=== PATIENT | male | born 1990 | race Caucasian/White ===

== ENCOUNTER 2018-02-22 18:18 | Emergency (ER) | payer OTHER ==
[~2018-02-22] VITALS: Ht 188 cm; Wt 82.0 kg
[2018-02-22] MEDS ORDERED: SODIUM CHLORIDE 0.9% 1,000ML IVBOLUS ONE (18:30)
[2018-02-22] MEDS ORDERED: ONDANSETRON 2MG/ML, 2ML IVPush ONE (18:30)
[2018-02-22] MEDS ORDERED: SODIUM CHLORIDE FLUSH 10ML SYR IVF ONE (18:30)
[2018-02-22] MEDS ORDERED: MORPHINE SULFATE 4 MG/ML, 1ML ONE ×3 (18:38→19:20)
[2018-02-22] MEDS ORDERED: ONDANSETRON 2MG/ML, 2ML ONE (18:38)
[2018-02-22] MEDS: MORPHINE SULFATE 4 MG/ML, 1ML IVPush PRN ×2 (18:42→18:58)
[2018-02-22 18:51] LABS: BASOPHILS # (AUTO) 0.13 x10^3/uL (0-0.1); BASOPHILS % (AUTO) 1 % (0-1); EOSINOPHILS # (AUTO) 0.16 x10^3/uL (0-0.4); EOSINOPHILS % (AUTO) 1 % (1-7); LYMPHOCYTES # (AUTO) 3.18 x10^3/uL (1-3.4); LYMPHOCYTES % (AUTO) 21 % (22-44); MD NO; MEAN CORPUSCULAR HEMOGLOBIN 29.4 pg (27.5-34.5); MEAN CORPUSCULAR HGB CONC 34.1 g/dL (33.2-36.2); MEAN CORPUSCULAR VOLUME 86.2 fL (81-97); MEAN PLATELET VOLUME 8.4 fL (7.4-10.4); MONOCYTES # (AUTO) 0.97 x10^3/uL (0.2-0.8); MONOCYTES % (AUTO) 6 % (2-9); NEUTROPHILS % (AUTO) 71 % (42-75); PLATELET COUNT 317 x10^3/uL (130-400); RED CELL DISTRIBUTION WIDTH 13.5 % (9.4-14.8)
[2018-02-22 19:01] LABS: ALANINE AMINOTRANSFERASE 29 U/L (12-78); ALBUMIN 4.6 g/dL (3.4-5.0); ANION GAP 10 mmol/L (5-15); CALCIUM 8.9 mg/dL (8.5-10.1); CHLORIDE 103 mmol/L (98-107); CREATININE 1.34 mg/dL (0.7-1.3)
[2018-02-22 19:04] LABS: ALKALINE PHOSPHATASE 90 U/L (45-117); BILIRUBIN,TOTAL 0.5 mg/dL (0.2-1.0); TOTAL PROTEIN 8.4 g/dL (6.4-8.2)
[2018-02-22] MEDS ORDERED: MORPHINE SULFATE 4 MG/ML, 1ML IVPush ONE (19:30)
[2018-02-22 19:31] LABS: MICROSCOPIC NOT IND
[2018-02-22 19:34] LABS: CULTURE INDICATED? NO
[2018-02-22] MEDS ORDERED: KETOROLAC 30 MG/1 ML ONE (21:44)
[2018-02-22 21:51] VITALS: BP 146/93
[2018-02-22] MEDS ORDERED: TAMSULOSIN 0.4 MG CAP.ER.24H PO ONE (22:00)
[2018-02-22] MEDS ORDERED: PROCHLORPERAZINE 5 MG/ML, 2ML IVPush ONE (22:00)
[2018-02-22] MEDS ORDERED: KETOROLAC 30 MG/1 ML IVPush ONE (22:00)
[2018-02-22] MEDS ORDERED: TAMSULOSIN 0.4 MG CAP.ER.24H ONE (22:02)
[2018-02-22] MEDS ORDERED: ONDANSETRON ODT 4 MG ONE (22:38)
[2018-02-22] MEDS ORDERED: ONDANSETRON ODT 4 MG PO ONE (23:00)
== END 2018-02-22 22:46 | disposition home or self-care (01) ==
LOC: ED 22:17
DX: N13.2 Hydronephrosis with renal and ureteral calculous obstruction (principal)
CPT/HCPCS: 36415; 74176; 80053; 81003; 83690; 85025; 96374; 96375; 99284; J1885; J2405; J7030; Q0162

== ENCOUNTER 2020-07-14 14:32 | Inpatient (IN) | payer BC, OTHER ==
[~2020-07-14] VITALS: Ht 188 cm; Wt 97.0 kg
[2020-07-14] MEDS ORDERED: SODIUM CHLORIDE FLUSH 10ML SYR IVF ONE (15:00)
[2020-07-14 15:07] LABS: BASOPHILS % (AUTO) 1 % (0-1); EOSINOPHILS % (AUTO) 1 % (1-7); LYMPHOCYTES % (AUTO) 17 % (22-44); MEAN CORPUSCULAR HEMOGLOBIN 33.2 pg (27.5-34.5); MEAN CORPUSCULAR HGB CONC 35.1 g/dL (33.2-36.2); MEAN PLATELET VOLUME 7.7 fL (7.4-10.4); MONOCYTES % (AUTO) 5 % (2-9); NEUTROPHILS % (AUTO) 77 % (42-75); PLATELET COUNT 307 x10^3/uL (130-400); RED BLOOD COUNT 4.83 x10^6/uL (4.38-5.82); RED CELL DISTRIBUTION WIDTH 13.9 % (9.4-14.8)
[2020-07-14 15:11] LABS: ALANINE AMINOTRANSFERASE 185 U/L (12-78); ALBUMIN 4.1 g/dL (3.4-5.0); ANION GAP 6 mmol/L (5-15); CALCIUM 9.3 mg/dL (8.5-10.1); CHLORIDE 104 mmol/L (98-107); CREATININE 0.96 mg/dL (0.7-1.3)
[2020-07-14 15:13] LABS: ALKALINE PHOSPHATASE 112 U/L (45-117); TOTAL PROTEIN 8.1 g/dL (6.4-8.2)
[2020-07-14 15:15] LABS: MD NO
[2020-07-14] MEDS ORDERED: MORPHINE SULFATE 4 MG/ML, 1ML ONE (16:51)
[2020-07-14] MEDS ORDERED: ONDANSETRON 2MG/ML, 2ML ONE ×2 (16:51→18:25)
[2020-07-14 17:00] LABS: MICROSCOPIC INDICATED
[2020-07-14] MEDS ORDERED: SODIUM CHLORIDE 0.9% 1,000ML IVBOLUS ONE ×2 (17:00→19:30)
[2020-07-14] MEDS ORDERED: ONDANSETRON 2MG/ML, 2ML IVPush ONE ×2 (17:00→18:30)
[2020-07-14] MEDS ORDERED: MORPHINE SULFATE 4 MG/ML, 1ML IVPush PRN (17:00)
--- NOTE | 2020-07-14 17:28 | NUR ---
PT IN BED WITH NO SIGNS OR SYMPTOMS OF ACUTE DSITRSS NOTED RESPIRATIONS EVEN AND UNLABORED PT REPORTS THAT PAIN UNCHANGED FROM ADMIN OF IV MORPHINE. US ONGOING AT BEDSIDE. PT ON UTILITY MECHANIC.
[2020-07-14] MEDS ORDERED: HYDROmorphone 1 MG/ML, 1ML INJ ONE ×2 (17:37→19:13)
[2020-07-14] MEDS ORDERED: HYDROmorphone 1 MG/ML, 1ML INJ IV ONE ×2 (18:00→19:30)
[2020-07-14] MEDS ORDERED: CEFTRIAXONE 1,000 MG in DEXTROSE 5% 50 ML IVPB ONE (18:30)
[2020-07-14] MEDS ORDERED: METRONIDAZOLE PMX 500MG/100ML 100 ML IV ONE (18:30)
[2020-07-14] MEDS ORDERED: METRONIDAZOLE PMX 500MG/100ML 100 ML ONE (18:32)
[2020-07-14] MEDS ORDERED: HYDROmorphone 1 MG/ML, 1ML INJ IV PRN (20:30)
[2020-07-14] MEDS: morphine SULFATE 10 MG/ML, 1ML IVPush PRN (21:05)
[2020-07-14] MEDS: ONDANSETRON ODT 4 MG PO PRN (21:14)
[2020-07-14] MEDS: FAMOTIDINE 20 MG/2 ML IVPush SCH (21:14)
[2020-07-14] MEDS: LACTATED RINGERS 1,000 ML IV SCH (21:14)
[2020-07-14] MEDS: PROMETHAZINE 25 MG/ML, 1ML IM PRN (21:59)
[2020-07-14] MEDS ORDERED: hydrALAzine 20 MG/ML, 1ML IV PRN (23:30)
[2020-07-14] MEDS: HYDROmorphone 2 MG/ML, 1ML IVPush PRN ×2 (23:33→23:50)
[2020-07-14 23:53] VITALS: BP 194/132
[2020-07-15] VITALS (16 sets, daily range): BP systolic 136–204; BP diastolic 91–134
[2020-07-15] MEDS ORDERED: KETOROLAC 30 MG/1 ML IM PRN (01:00)
[2020-07-15] MEDS ORDERED: hydrALAzine 20 MG/ML, 1ML IV ONE (01:00)
[2020-07-15] MEDS: KETOROLAC 30 MG/1 ML IV PRN ×2 (01:45→08:02)
[2020-07-15] MEDS: LACTATED RINGERS 1,000 ML IV SCH ×3 (02:40→15:26)
[2020-07-15] MEDS ORDERED: hydrALAzine 20 MG/ML, 1ML IV PRN (03:00)
[2020-07-15] MEDS ORDERED: LABETALOL 5MG/ML, 20ML IVPush ONE ×2 (03:30→05:30)
[2020-07-15] MEDS ORDERED: LABETALOL 5MG/ML, 20ML IVPush PRN (04:30)
[2020-07-15] MEDS: HYDROmorphone 1 MG/ML, 1ML INJ IV PRN ×9 (04:35→21:51)
[2020-07-15 06:00] LABS: MEAN CORPUSCULAR HEMOGLOBIN 32.6 pg (27.5-34.5); MEAN CORPUSCULAR HGB CONC 34.4 g/dL (33.2-36.2); MEAN PLATELET VOLUME 8.5 fL (7.4-10.4); PLATELET COUNT 289 x10^3/uL (130-400)
[2020-07-15 06:09] LABS: CHLORIDE 101 mmol/L (98-107)
[2020-07-15 06:27] LABS: ALANINE AMINOTRANSFERASE 148 U/L (12-78); ALBUMIN 4.1 g/dL (3.4-5.0); ALKALINE PHOSPHATASE 101 U/L (45-117); ANION GAP 13 mmol/L (5-15); BILIRUBIN,TOTAL 1.8 mg/dL (0.2-1.0); CALCIUM 9.6 mg/dL (8.5-10.1); TOTAL PROTEIN 8.4 g/dL (6.4-8.2)
[2020-07-15 06:34] LABS: MD YES
[2020-07-15 06:36] LABS: <RBC MORPHOLOGY> NORMAL; BANDS%(MANUAL) 8 % (0-7); LYMPH#(MANUAL) 0.47 x10^3/uL (1-3.4); LYMPHS% (MANUAL) 2 % (22-44); MONOS#(MANUAL) 0.47 x10^3/uL (0.3-2.7); MONOS% (MANUAL) 2 % (2-9); SEG#(MANUAL) 20.86 x10^3/uL (1.8-6.8); SEGS% (MANUAL) 88 % (42-75)
[2020-07-15 06:37] LABS: <PLATELET ESTIMATE> ADEQUATE; <PLT MORPHOLOGY> NORMAL PLT MORPH
[2020-07-15] MEDS: FAMOTIDINE 20 MG/2 ML IVPush SCH ×2 (08:50→19:45)
[2020-07-15 09:23] LABS: AMPHETAMINE SCREEN, URINE Negative (Negative); BARBITURATE SCREEN, URINE Negative (Negative); BENZODIAZEPINE SCREEN, URINE Negative (Negative); CANNABINOID SCREEN, URINE Positive (Negative); COCAINE SCREEN, URINE Negative (Negative); METHADONE SCREEN, URINE Negative (Negative); OPIATE SCREEN, URINE Positive (Negative)
[2020-07-15] MEDS: ONDANSETRON ODT 4 MG PO PRN ×4 (09:52→21:51)
[2020-07-15] MEDS: PROMETHAZINE 25 MG/ML, 1ML IM PRN ×2 (15:24→19:46)
[2020-07-15] MEDS: ZOLPIDEM 5MG TABLET PO SCH (21:51)
[2020-07-16] MEDS: LACTATED RINGERS 1,000 ML IV SCH ×4 (00:03→20:36)
[2020-07-16] MEDS: HYDROmorphone 1 MG/ML, 1ML INJ IV PRN ×4 (00:04→06:56)
[2020-07-16] MEDS: PROMETHAZINE 25 MG/ML, 1ML IM PRN ×5 (00:04→20:35)
[2020-07-16 00:52] VITALS: BP 132/87
[2020-07-16] MEDS ORDERED: METOPROLOL 1 MG/ML, 5ML IVPush ONE ×2 (01:30→03:30)
[2020-07-16 02:08] VITALS: BP 138/82
[2020-07-16] MEDS: ONDANSETRON ODT 4 MG PO PRN ×2 (02:21→05:59)
[2020-07-16 06:33] LABS: MEAN CORPUSCULAR HEMOGLOBIN 32.9 pg (27.5-34.5); MEAN CORPUSCULAR HGB CONC 33.8 g/dL (33.2-36.2); MEAN PLATELET VOLUME 9.2 fL (7.4-10.4); PLATELET COUNT 235 x10^3/uL (130-400); RED BLOOD COUNT 5.09 x10^6/uL (4.38-5.82); RED CELL DISTRIBUTION WIDTH 14.2 % (9.4-14.8)
[2020-07-16 06:39] LABS: ALANINE AMINOTRANSFERASE 95 U/L (12-78); ALBUMIN 3.1 g/dL (3.4-5.0); ANION GAP 13 mmol/L (5-15); CALCIUM 8.8 mg/dL (8.5-10.1); CHLORIDE 98 mmol/L (98-107); CREATININE 1.73 mg/dL (0.7-1.3)
[2020-07-16 06:41] LABS: ALKALINE PHOSPHATASE 77 U/L (45-117); BILIRUBIN,TOTAL 4.2 mg/dL (0.2-1.0); TOTAL PROTEIN 7.4 g/dL (6.4-8.2)
[2020-07-16 07:13] VITALS: BP 143/83
[2020-07-16 07:35] LABS: MD YES
[2020-07-16 07:37] LABS: <PLATELET ESTIMATE> ADEQUATE; <PLT MORPHOLOGY> NORMAL PLT MORPH; <RBC MORPHOLOGY> NORMAL; BAND#(MANUAL) 2.84 x10^3/uL; BANDS%(MANUAL) 12 % (0-7); LYMPH#(MANUAL) 0.47 x10^3/uL (1-3.4); LYMPHS% (MANUAL) 2 % (22-44); MONOS#(MANUAL) 0.24 x10^3/uL (0.3-2.7); MONOS% (MANUAL) 1 % (2-9); SEG#(MANUAL) 20.15 x10^3/uL (1.8-6.8); SEGS% (MANUAL) 85 % (42-75)
[2020-07-16 07:38] LABS: PMNS WITH VACUOLES 1+
[2020-07-16 07:45] LABS: TROPONIN I < 0.015 ng/mL (0.000-0.045)
[2020-07-16] MEDS ORDERED: HYDROmorphone 2 MG/ML, 1ML ONE (09:48)
[2020-07-16] MEDS: FAMOTIDINE 20 MG/2 ML IVPush SCH ×2 (09:52→20:35)
[2020-07-16] MEDS: HYDROmorphone 2 MG/ML, 1ML IVPush PRN ×4 (09:55→22:57)
[2020-07-16] MEDS: PIPERACILLIN/TAZO/PMX 3.375GM 50 ML IV SCH ×2 (10:55→18:22)
[2020-07-16 13:44] VITALS: BP 162/106
[2020-07-16 19:06] VITALS: BP 153/86
[2020-07-16] MEDS: ZOLPIDEM 5MG TABLET PO SCH (20:35)
[2020-07-17] MEDS: PIPERACILLIN/TAZO/PMX 3.375GM 50 ML IV SCH ×4 (00:17→17:26)
[2020-07-17] MEDS ORDERED: METOPROLOL TARTRATE 25 MG TAB PO ONE (00:30)
[2020-07-17] MEDS ORDERED: METOPROLOL 1 MG/ML, 5ML IVPush ONE (00:30)
[2020-07-17 00:56] VITALS: BP 150/82
[2020-07-17] MEDS: HYDROmorphone 2 MG/ML, 1ML IVPush PRN ×5 (03:31→21:13)
[2020-07-17] MEDS: PROMETHAZINE 25 MG/ML, 1ML IM PRN ×3 (03:45→17:26)
[2020-07-17] MEDS: LACTATED RINGERS 1,000 ML IV SCH ×2 (03:45→20:09)
[2020-07-17 04:59] LABS: MEAN CORPUSCULAR HGB CONC 34.1 g/dL (33.2-36.2); MEAN PLATELET VOLUME 8.7 fL (7.4-10.4); PLATELET COUNT 181 x10^3/uL (130-400); RED BLOOD COUNT 4.33 x10^6/uL (4.38-5.82); RED CELL DISTRIBUTION WIDTH 14.4 % (9.4-14.8)
[2020-07-17 05:12] LABS: ALBUMIN 2.4 g/dL (3.4-5.0); ANION GAP 12 mmol/L (5-15); CALCIUM 8.3 mg/dL (8.5-10.1); CHLORIDE 97 mmol/L (98-107)
[2020-07-17 05:15] LABS: ALANINE AMINOTRANSFERASE 84 U/L (12-78); ALKALINE PHOSPHATASE 65 U/L (45-117); BILIRUBIN,TOTAL 6.2 mg/dL (0.2-1.0); CREATININE 1.22 mg/dL (0.7-1.3); TOTAL PROTEIN 6.5 g/dL (6.4-8.2)
[2020-07-17 05:20] LABS: MEAN CORPUSCULAR HEMOGLOBIN 33.1 pg (27.5-34.5)
[2020-07-17 05:46] LABS: MD YES
[2020-07-17 05:47] LABS: <PLATELET ESTIMATE> ADEQUATE; <RBC MORPHOLOGY> NORMAL; BAND#(MANUAL) 1.14 x10^3/uL; BANDS%(MANUAL) 8 % (0-7); EOS#(MANUAL) 0.14 x10^3/uL (0.0-0.4); EOS% (MANUAL) 1 % (1-7); LYMPH#(MANUAL) 0.85 x10^3/uL (1-3.4); LYMPHS% (MANUAL) 6 % (22-44); PMNS WITH VACUOLES 1+; SEG#(MANUAL) 12.07 x10^3/uL (1.8-6.8); SEGS% (MANUAL) 85 % (42-75)
[2020-07-17 05:48] LABS: <PLT MORPHOLOGY> NORMAL PLT MORPH
[2020-07-17 06:41] VITALS: BP 140/83
[2020-07-17] MEDS: FAMOTIDINE 20 MG/2 ML IVPush SCH ×2 (07:46→21:16)
[2020-07-17] MEDS: INSULIN LISPRO 100 UNITS/ML, PEN SQ-INSULIN SCH ×4 (09:30→21:17)
[2020-07-17] MEDS ORDERED: PROCHLORPERAZINE 5 MG/ML, 2ML IVPush PRN (10:30)
[2020-07-17 14:49] VITALS: BP 150/90
[2020-07-17 20:31] VITALS: BP 154/88
[2020-07-17] MEDS: ZOLPIDEM 5MG TABLET PO SCH (21:16)
[2020-07-18] MEDS: PIPERACILLIN/TAZO/PMX 3.375GM 50 ML IV SCH ×4 (00:01→21:31)
[2020-07-18 00:07] VITALS: BP 141/93
[2020-07-18] MEDS: HYDROmorphone 2 MG/ML, 1ML IVPush PRN ×6 (00:52→21:31)
[2020-07-18] MEDS: LACTATED RINGERS 1,000 ML IV SCH ×2 (05:18→09:00)
[2020-07-18 05:45] LABS: BASOPHILS % (AUTO) 0 % (0-1); EOSINOPHILS % (AUTO) 1 % (1-7); LYMPHOCYTES % (AUTO) 15 % (22-44); MEAN CORPUSCULAR HEMOGLOBIN 33.7 pg (27.5-34.5); MEAN CORPUSCULAR HGB CONC 34.7 g/dL (33.2-36.2); MEAN PLATELET VOLUME 9.1 fL (7.4-10.4); MONOCYTES % (AUTO) 7 % (2-9); NEUTROPHILS % (AUTO) 77 % (42-75); PLATELET COUNT 170 x10^3/uL (130-400); RED BLOOD COUNT 3.88 x10^6/uL (4.38-5.82); RED CELL DISTRIBUTION WIDTH 14.4 % (9.4-14.8)
[2020-07-18 05:55] LABS: ALBUMIN 2.2 g/dL (3.4-5.0); ANION GAP 14 mmol/L (5-15); CALCIUM 8.2 mg/dL (8.5-10.1); CHLORIDE 94 mmol/L (98-107)
[2020-07-18 06:01] LABS: ALANINE AMINOTRANSFERASE 88 U/L (12-78); ALKALINE PHOSPHATASE 64 U/L (45-117); BILIRUBIN,TOTAL 6.6 mg/dL (0.2-1.0); CREATININE 0.95 mg/dL (0.7-1.3); TOTAL PROTEIN 6.4 g/dL (6.4-8.2)
[2020-07-18] MEDS: PROMETHAZINE 25 MG/ML, 1ML IM PRN ×3 (06:09→22:18)
[2020-07-18 06:25] LABS: MD SCAN
[2020-07-18 07:22] VITALS: BP 144/92
[2020-07-18] MEDS: FAMOTIDINE 20 MG/2 ML IVPush SCH ×2 (09:19→20:09)
[2020-07-18] MEDS: INSULIN LISPRO 100 UNITS/ML, PEN SQ-INSULIN SCH ×4 (09:19→22:17)
[2020-07-18] MEDS ORDERED: MIDAZOLAM 1 MG/ML, 2ML ONE (11:16)
[2020-07-18] MEDS ORDERED: FENTANYL PF 100 MCG/2ML ONE (11:16)
[2020-07-18] MEDS ORDERED: CHLORHEXIDINE 15 ML UDC ONE (11:24)
[2020-07-18] MEDS ORDERED: MEPERIDINE/PF 25MG/0.5ML IVPush PRN (11:30)
[2020-07-18] MEDS ORDERED: PROMETHAZINE 25 MG/ML, 1ML IVPush PRN (11:30)
[2020-07-18] MEDS ORDERED: FENTANYL PF 100 MCG/2ML IV PRN (11:30)
[2020-07-18] MEDS ORDERED: ONDANSETRON 2MG/ML, 2ML IVPush PRN (11:30)
[2020-07-18] MEDS ORDERED: HYDROcodone/APAP 7.5-325MG/15ML UDC PO PRN (11:30)
[2020-07-18] MEDS ORDERED: HYDROmorphone 1 MG/ML, 1ML INJ IVPush PRN (11:30)
[2020-07-18] MEDS ORDERED: OXYcodone 5 MG/5 ML ORAL.SOL UDC PO PRN (11:30)
[2020-07-18] MEDS ORDERED: OMNIPAQUE 350 MG/ML, 50 ML BOTTLE ONE (11:48)
[2020-07-18] MEDS ORDERED: GLYCOPYRROLATE 0.2MG/1ML, 5ML ONE (12:26)
[2020-07-18] MEDS ORDERED: CEFAZOLIN 1,000 MG ONE (12:26)
[2020-07-18] MEDS ORDERED: ONDANSETRON 2MG/ML, 2ML ONE (12:26)
[2020-07-18] MEDS ORDERED: SUCCINYLCHOLINE 20 MG/ML, 10ML ONE (12:26)
[2020-07-18] MEDS ORDERED: ROCURONIUM 10MG/ML,5ML ONE (12:26)
[2020-07-18] MEDS ORDERED: NEOSTIGMINE 1 MG/ML, 10ML ONE (12:26)
[2020-07-18] MEDS ORDERED: PROPOFOL 10 MG/ML, 20ML ONE (12:26)
[2020-07-18] MEDS ORDERED: ALBUTEROL HFA 90 MCG/SPRAY ONE (12:47)
[2020-07-18] MEDS ORDERED: ALBUTEROL SULFATE 2.5 MG/3 ML NPPB PRN (13:00)
[2020-07-18 13:30] VITALS: BP 130/82
[2020-07-18] MEDS ORDERED: ALBUTEROL HFA 90 MCG/SPRAY INH ONE (13:30)
[2020-07-18 19:06] VITALS: BP 148/78
[2020-07-18] MEDS: ZOLPIDEM 5MG TABLET PO SCH (21:30)
[2020-07-18] MEDS: INSULIN GLARGINE 100 UNITS/ML, PEN SQ-INSULIN SCH (22:17)
[2020-07-19] MEDS: ONDANSETRON ODT 4 MG PO PRN (00:58)
[2020-07-19] MEDS: HYDROmorphone 2 MG/ML, 1ML IVPush PRN ×3 (00:59→06:30)
[2020-07-19 02:01] VITALS: BP 146/81
[2020-07-19] MEDS: PIPERACILLIN/TAZO/PMX 3.375GM 50 ML IV SCH ×4 (02:52→21:27)
[2020-07-19 04:59] LABS: ALBUMIN 2.1 g/dL (3.4-5.0); ANION GAP 9 mmol/L (5-15); CALCIUM 7.9 mg/dL (8.5-10.1); CHLORIDE 95 mmol/L (98-107); MEAN CORPUSCULAR HEMOGLOBIN 33.6 pg (27.5-34.5); MEAN CORPUSCULAR HGB CONC 34.4 g/dL (33.2-36.2); MEAN PLATELET VOLUME 9.2 fL (7.4-10.4); PLATELET COUNT 183 x10^3/uL (130-400); RED BLOOD COUNT 3.65 x10^6/uL (4.38-5.82); RED CELL DISTRIBUTION WIDTH 14.4 % (9.4-14.8)
[2020-07-19 05:03] LABS: ALANINE AMINOTRANSFERASE 85 U/L (12-78); ALKALINE PHOSPHATASE 70 U/L (45-117); BILIRUBIN,TOTAL 6.5 mg/dL (0.2-1.0); CREATININE 0.83 mg/dL (0.7-1.3); TOTAL PROTEIN 6.5 g/dL (6.4-8.2)
[2020-07-19 05:51] LABS: MD YES
[2020-07-19 05:52] LABS: BAND#(MANUAL) 2.16 x10^3/uL; BANDS%(MANUAL) 22 % (0-7); EOS% (MANUAL) 2 % (1-7); LYMPH#(MANUAL) 1.27 x10^3/uL (1-3.4); LYMPHS% (MANUAL) 13 % (22-44); METAMYELOCYTES# (MANUAL) 0.69 x10^3/uL (0-0); METAMYELOCYTES% (MANUAL) 7 % (0-1); MONOS#(MANUAL) 0.78 x10^3/uL (0.3-2.7); MONOS% (MANUAL) 8 % (2-9); MYELOCYTES# (MANUAL) 0.39 x10^3/uL (0-0); MYELOCYTES% (MANUAL) 4 % (0-0); SEG#(MANUAL) 4.31 x10^3/uL (1.8-6.8); SEGS% (MANUAL) 44 % (42-75)
[2020-07-19 05:55] LABS: <PLATELET ESTIMATE> ADEQUATE; <PLT MORPHOLOGY> NORMAL PLT MORPH; POLYCHROMASIA 1+
[2020-07-19 05:56] LABS: TOXIC GRAN 1+
[2020-07-19 06:59] VITALS: BP 147/86
[2020-07-19] MEDS: FAMOTIDINE 20 MG/2 ML IVPush SCH ×3 (08:47→22:19)
[2020-07-19] MEDS: INSULIN LISPRO 100 UNITS/ML, PEN SQ-INSULIN SCH ×4 (08:47→21:28)
[2020-07-19] MEDS: LACTATED RINGERS 1,000 ML IV SCH ×2 (08:48→22:20)
[2020-07-19] MEDS: HYDROmorphone 1 MG/ML, 1ML INJ IV PRN ×5 (10:18→21:30)
[2020-07-19 13:40] LABS: ANA SCREEN NEGATIVE (Negative)
[2020-07-19 13:49] VITALS: BP 154/97
[2020-07-19] MEDS: PROMETHAZINE 25 MG/ML, 1ML IM PRN ×2 (16:25→20:15)
[2020-07-19 20:00] VITALS: BP 135/87
[2020-07-19] MEDS: ZOLPIDEM 5MG TABLET PO SCH (20:15)
[2020-07-19] MEDS: INSULIN GLARGINE 100 UNITS/ML, PEN SQ-INSULIN SCH (21:28)
[2020-07-20] MEDS: HYDROmorphone 1 MG/ML, 1ML INJ IV PRN ×2 (00:49→09:15)
[2020-07-20] MEDS: PROMETHAZINE 25 MG/ML, 1ML IM PRN ×3 (01:01→19:57)
[2020-07-20 01:17] VITALS: BP 154/83
[2020-07-20] MEDS: PIPERACILLIN/TAZO/PMX 3.375GM 50 ML IV SCH ×4 (03:01→21:05)
[2020-07-20] MEDS ORDERED: HYDROmorphone 2 MG/ML, 1ML ONE ×2 (03:37→06:18)
[2020-07-20] MEDS: HYDROmorphone 2 MG/ML, 1ML IVPush PRN ×5 (03:41→19:57)
[2020-07-20 05:24] LABS: MEAN CORPUSCULAR HEMOGLOBIN 33.3 pg (27.5-34.5); MEAN CORPUSCULAR HGB CONC 34.6 g/dL (33.2-36.2); MEAN PLATELET VOLUME 9.8 fL (7.4-10.4); PLATELET COUNT 188 x10^3/uL (130-400); RED BLOOD COUNT 3.58 x10^6/uL (4.38-5.82); RED CELL DISTRIBUTION WIDTH 14.7 % (9.4-14.8)
[2020-07-20 05:29] LABS: ALBUMIN 1.9 g/dL (3.4-5.0); ANION GAP 8 mmol/L (5-15); CALCIUM 8.2 mg/dL (8.5-10.1); CHLORIDE 99 mmol/L (98-107)
[2020-07-20 05:31] LABS: CREATININE 0.69 mg/dL (0.7-1.3)
[2020-07-20 06:14] LABS: MD YES
[2020-07-20 06:17] LABS: BAND#(MANUAL) 2.18 x10^3/uL; BANDS%(MANUAL) 17 % (0-7); EOS#(MANUAL) 0.38 x10^3/uL (0.0-0.4); EOS% (MANUAL) 3 % (1-7); LYMPH#(MANUAL) 1.92 x10^3/uL (1-3.4); LYMPHS% (MANUAL) 15 % (22-44); METAMYELOCYTES# (MANUAL) 0.51 x10^3/uL (0-0); METAMYELOCYTES% (MANUAL) 4 % (0-1); MONOS#(MANUAL) 0.77 x10^3/uL (0.3-2.7); MONOS% (MANUAL) 6 % (2-9); MYELOCYTES# (MANUAL) 0.38 x10^3/uL (0-0); MYELOCYTES% (MANUAL) 3 % (0-0); SEG#(MANUAL) 6.66 x10^3/uL (1.8-6.8); SEGS% (MANUAL) 52 % (42-75)
[2020-07-20 06:24] LABS: <PLATELET ESTIMATE> ADEQUATE; <PLT MORPHOLOGY> NORMAL PLT MORPH; <RBC MORPHOLOGY> NORMAL; TOXIC GRAN 1+
[2020-07-20 06:57] VITALS: BP 148/91
[2020-07-20] MEDS: INSULIN LISPRO 100 UNITS/ML, PEN SQ-INSULIN SCH ×4 (07:00→21:27)
[2020-07-20] MEDS ORDERED: POTASSIUM CHLORIDE 40 MEQ in SODIUM CHLORIDE 0.9% 500 ML IV ONE (08:00)
[2020-07-20] MEDS: LACTATED RINGERS 1,000 ML IV SCH ×2 (08:00→17:22)
[2020-07-20] MEDS: FAMOTIDINE 20 MG/2 ML IVPush SCH ×2 (09:15→21:06)
[2020-07-20] MEDS ORDERED: POTASSIUM PHOSPHATE 44 MEQ in SODIUM CHLORIDE 0.9% 500 ML IV ONE (09:30)
[2020-07-20 13:06] VITALS: BP 167/99
[2020-07-20] MEDS: ONDANSETRON ODT 4 MG PO PRN (15:14)
[2020-07-20] MEDS: SIMETHICONE 80 MG CHEW TAB PO PRN (18:05)
[2020-07-20 20:00] VITALS: BP 149/94
[2020-07-20] MEDS: ZOLPIDEM 5MG TABLET PO SCH (21:06)
[2020-07-20] MEDS: INSULIN GLARGINE 100 UNITS/ML, PEN SQ-INSULIN SCH (21:28)
[2020-07-21] MEDS: ONDANSETRON ODT 4 MG PO PRN ×2 (00:10→20:22)
[2020-07-21] MEDS: morphine SULFATE 10 MG/ML, 1ML IVPush PRN (00:10)
[2020-07-21] MEDS: PROMETHAZINE 25 MG/ML, 1ML IM PRN ×4 (00:49→13:21)
[2020-07-21 04:10] VITALS: BP 160/99
[2020-07-21] MEDS: PIPERACILLIN/TAZO/PMX 3.375GM 50 ML IV SCH ×4 (04:14→21:37)
[2020-07-21] MEDS: HYDROmorphone 2 MG/ML, 1ML IVPush PRN ×6 (04:15→23:46)
[2020-07-21 05:43] LABS: MEAN CORPUSCULAR HEMOGLOBIN 32.5 pg (27.5-34.5); MEAN CORPUSCULAR HGB CONC 33.5 g/dL (33.2-36.2); MEAN PLATELET VOLUME 9.7 fL (7.4-10.4); PLATELET COUNT 226 x10^3/uL (130-400); RED BLOOD COUNT 3.55 x10^6/uL (4.38-5.82); RED CELL DISTRIBUTION WIDTH 14.7 % (9.4-14.8)
[2020-07-21 05:53] LABS: ALBUMIN 1.9 g/dL (3.4-5.0); ANION GAP 9 mmol/L (5-15); CALCIUM 8.1 mg/dL (8.5-10.1); CHLORIDE 101 mmol/L (98-107)
[2020-07-21 05:58] LABS: ALANINE AMINOTRANSFERASE 76 U/L (12-78); ALKALINE PHOSPHATASE 96 U/L (45-117); BILIRUBIN,TOTAL 3.8 mg/dL (0.2-1.0); CREATININE 0.69 mg/dL (0.7-1.3); TOTAL PROTEIN 6.2 g/dL (6.4-8.2)
[2020-07-21] MEDS: LACTATED RINGERS 1,000 ML IV SCH ×3 (06:31→23:45)
[2020-07-21 06:52] LABS: MD YES
[2020-07-21 06:54] LABS: <RBC MORPHOLOGY> NORMAL; BAND#(MANUAL) 3.21 x10^3/uL; BANDS%(MANUAL) 17 % (0-7); EOS#(MANUAL) 0.38 x10^3/uL (0.0-0.4); EOS% (MANUAL) 2 % (1-7); LYMPHS% (MANUAL) 9 % (22-44); METAMYELOCYTES# (MANUAL) 0.38 x10^3/uL (0-0); METAMYELOCYTES% (MANUAL) 2 % (0-1); MONOS% (MANUAL) 9 % (2-9); MYELOCYTES# (MANUAL) 0.38 x10^3/uL (0-0); MYELOCYTES% (MANUAL) 2 % (0-0); SEG#(MANUAL) 11.15 x10^3/uL (1.8-6.8); SEGS% (MANUAL) 59 % (42-75); TOXIC GRAN 1+
[2020-07-21 06:55] LABS: <PLATELET ESTIMATE> ADEQUATE; <PLT MORPHOLOGY> NORMAL PLT MORPH
[2020-07-21] MEDS: INSULIN LISPRO 100 UNITS/ML, PEN SQ-INSULIN SCH ×4 (08:04→21:38)
[2020-07-21] MEDS ORDERED: OMNIPAQUE 350 MG/ML, 100ML BOTTLE ONE (08:20)
[2020-07-21 09:05] VITALS: BP 160/103
[2020-07-21] MEDS: FAMOTIDINE 20 MG/2 ML IVPush SCH (09:37)
[2020-07-21 12:48] LABS: MICROSCOPIC INDICATED
[2020-07-21 13:52] VITALS: BP 174/78
[2020-07-21] MEDS: ACETAMINOPHEN 325 MG TABLET PO PRN ×2 (15:36→22:04)
[2020-07-21 19:09] VITALS: BP 168/94
[2020-07-21] MEDS: FAMOTIDINE 20 MG TABLET PO SCH (21:37)
[2020-07-21] MEDS: ZOLPIDEM 5MG TABLET PO SCH (21:37)
[2020-07-21] MEDS: INSULIN GLARGINE 100 UNITS/ML, PEN SQ-INSULIN SCH (21:40)
[2020-07-22 00:04] VITALS: BP 170/97
[2020-07-22 01:47] VITALS: BP 142/90
[2020-07-22] MEDS: ONDANSETRON ODT 4 MG PO PRN ×4 (01:54→18:06)
[2020-07-22] MEDS: HYDROmorphone 2 MG/ML, 1ML IVPush PRN ×7 (01:55→21:31)
[2020-07-22] MEDS: PIPERACILLIN/TAZO/PMX 3.375GM 50 ML IV SCH ×4 (03:27→21:01)
[2020-07-22 05:29] LABS: MEAN CORPUSCULAR HEMOGLOBIN 32.4 pg (27.5-34.5); MEAN CORPUSCULAR HGB CONC 33.9 g/dL (33.2-36.2); MEAN PLATELET VOLUME 9.8 fL (7.4-10.4); PLATELET COUNT 273 x10^3/uL (130-400); RED BLOOD COUNT 3.55 x10^6/uL (4.38-5.82); RED CELL DISTRIBUTION WIDTH 14.7 % (9.4-14.8)
[2020-07-22 05:35] LABS: ALANINE AMINOTRANSFERASE 59 U/L (12-78); ALBUMIN 1.9 g/dL (3.4-5.0); ANION GAP 11 mmol/L (5-15); CALCIUM 8.3 mg/dL (8.5-10.1); CHLORIDE 99 mmol/L (98-107); CREATININE 0.61 mg/dL (0.7-1.3)
[2020-07-22 05:37] LABS: ALKALINE PHOSPHATASE 108 U/L (45-117); BILIRUBIN,TOTAL 2.5 mg/dL (0.2-1.0); TOTAL PROTEIN 6.6 g/dL (6.4-8.2)
[2020-07-22 06:05] LABS: MD YES
[2020-07-22 06:10] LABS: BAND#(MANUAL) 2.62 x10^3/uL; BANDS%(MANUAL) 10 % (0-7); EOS#(MANUAL) 0.26 x10^3/uL (0.0-0.4); EOS% (MANUAL) 1 % (1-7); LYMPHS% (MANUAL) 8 % (22-44); METAMYELOCYTES# (MANUAL) 0.26 x10^3/uL (0-0); METAMYELOCYTES% (MANUAL) 1 % (0-1); MONOS#(MANUAL) 1.05 x10^3/uL (0.3-2.7); MONOS% (MANUAL) 4 % (2-9); MYELOCYTES# (MANUAL) 0.52 x10^3/uL (0-0); MYELOCYTES% (MANUAL) 2 % (0-0); SEG#(MANUAL) 19.39 x10^3/uL (1.8-6.8); SEGS% (MANUAL) 74 % (42-75)
[2020-07-22 06:12] LABS: <PLATELET ESTIMATE> ADEQUATE; <PLT MORPHOLOGY> NORMAL PLT MORPH; <RBC MORPHOLOGY> NORMAL; TOXIC GRAN 1+
[2020-07-22 07:20] VITALS: BP 162/89
[2020-07-22] MEDS: FAMOTIDINE 20 MG TABLET PO SCH ×2 (08:09→21:02)
[2020-07-22] MEDS: INSULIN LISPRO 100 UNITS/ML, PEN SQ-INSULIN SCH ×5 (10:15→21:33)
[2020-07-22 12:13] VITALS: BP 147/95
[2020-07-22] MEDS: CHOLECALCIFEROL 5,000u TAB PO SCH ×2 (12:26→13:35)
[2020-07-22] MEDS: MULTIVITS,STRESS FORMULA 1 TABLET PO SCH ×2 (12:26→13:35)
[2020-07-22] MEDS: POTASSIUM CHLORIDE 20 MEQ in SODIUM CHLORIDE 0.9% 250 ML IV SCH ×2 (12:26→22:00)
[2020-07-22] MEDS: ZINC SULFATE 220 MG CAPSULE PO SCH ×2 (12:26→13:36)
[2020-07-22] MEDS: CYCLOBENZAPRINE 10 MG TABLET PO PRN ×2 (13:36→21:30)
[2020-07-22] MEDS: LACTATED RINGERS 1,000 ML IV SCH (19:51)
[2020-07-22] MEDS: ASCORBIC ACID 500 MG TABLET PO SCH (21:01)
[2020-07-22] MEDS: ZOLPIDEM 5MG TABLET PO SCH (21:01)
[2020-07-22] MEDS: INSULIN GLARGINE 100 UNITS/ML, PEN SQ-INSULIN SCH (21:32)
[2020-07-23] MEDS: HYDROmorphone 2 MG/ML, 1ML IVPush PRN ×8 (00:58→22:56)
[2020-07-23 01:07] VITALS: BP 154/90
[2020-07-23] MEDS: PIPERACILLIN/TAZO/PMX 3.375GM 50 ML IV SCH ×2 (03:13→09:34)
[2020-07-23 06:47] VITALS: BP 155/96
[2020-07-23 07:27] LABS: MEAN CORPUSCULAR HEMOGLOBIN 32.4 pg (27.5-34.5); MEAN CORPUSCULAR HGB CONC 33.6 g/dL (33.2-36.2); MEAN PLATELET VOLUME 9.4 fL (7.4-10.4); PLATELET COUNT 404 x10^3/uL (130-400); RED CELL DISTRIBUTION WIDTH 14.7 % (9.4-14.8)
[2020-07-23 07:34] LABS: ALBUMIN 1.8 g/dL (3.4-5.0); ANION GAP 11 mmol/L (5-15); CALCIUM 8.2 mg/dL (8.5-10.1); CHLORIDE 99 mmol/L (98-107); CREATININE 0.65 mg/dL (0.7-1.3)
[2020-07-23 08:00] LABS: MD YES
[2020-07-23 08:03] LABS: BAND#(MANUAL) 2.39 x10^3/uL; BANDS%(MANUAL) 8 % (0-7); EOS% (MANUAL) 1 % (1-7); LYMPH#(MANUAL) 2.09 x10^3/uL (1-3.4); LYMPHS% (MANUAL) 7 % (22-44); METAMYELOCYTES% (MANUAL) 1 % (0-1); MONOS% (MANUAL) 2 % (2-9); MYELOCYTES% (MANUAL) 1 % (0-0); SEGS% (MANUAL) 80 % (42-75)
[2020-07-23 08:05] LABS: <PLATELET ESTIMATE> ADEQUATE; <RBC MORPHOLOGY> NORMAL; TOXIC GRAN 2+
[2020-07-23 08:06] LABS: LARGE PLATELETS 1+
[2020-07-23 08:39] LABS: CLOSTRIDIUM DIFFICILE ANTIGEN POSITIVE; CLOSTRIDIUM DIFFICILE TOXIN NEGATIVE (Negative)
[2020-07-23] MEDS: INSULIN LISPRO 100 UNITS/ML, PEN SQ-INSULIN SCH ×4 (09:35→20:41)
[2020-07-23] MEDS: MULTIVITS,STRESS FORMULA 1 TABLET PO SCH (09:36)
[2020-07-23] MEDS: FAMOTIDINE 20 MG TABLET PO SCH ×2 (09:36→20:39)
[2020-07-23] MEDS: CHOLECALCIFEROL 5,000u TAB PO SCH (09:36)
[2020-07-23] MEDS: ZINC SULFATE 220 MG CAPSULE PO SCH (09:36)
[2020-07-23] MEDS: ASCORBIC ACID 500 MG TABLET PO SCH ×2 (09:36→15:26)
[2020-07-23] MEDS: HYDROmorphone 1 MG/ML, 1ML INJ IV PRN (09:54)
[2020-07-23] MEDS: ONDANSETRON ODT 4 MG PO PRN ×2 (09:54→15:26)
[2020-07-23] MEDS: LACTATED RINGERS 1,000 ML IV SCH ×2 (10:00→22:49)
[2020-07-23] MEDS: CYCLOBENZAPRINE 10 MG TABLET PO PRN ×2 (11:53→20:39)
[2020-07-23 12:02] VITALS: BP 139/77
[2020-07-23] MEDS ORDERED: HYDROmorphone 2 MG/ML, 1ML ONE ×2 (12:36→15:15)
[2020-07-23] MEDS: VANCOMYCIN 50 MG/ML ORAL SUSP PO SCH ×2 (12:46→19:40)
[2020-07-23] MEDS: POTASSIUM CHLORIDE 20 MEQ in SODIUM CHLORIDE 0.9% 250 ML IV SCH ×2 (15:26→22:49)
[2020-07-23] MEDS: ACETAMINOPHEN 325 MG TABLET PO PRN (16:51)
[2020-07-23 18:41] VITALS: BP 161/91
[2020-07-23] MEDS: ZOLPIDEM 5MG TABLET PO SCH (20:40)
[2020-07-23] MEDS: INSULIN GLARGINE 100 UNITS/ML, PEN SQ-INSULIN SCH (20:41)
[2020-07-24 00:58] VITALS: BP 143/85
[2020-07-24] MEDS: VANCOMYCIN 50 MG/ML ORAL SUSP PO SCH ×5 (01:08→23:37)
[2020-07-24] MEDS: HYDROmorphone 2 MG/ML, 1ML IVPush PRN ×7 (01:08→15:47)
[2020-07-24 05:40] LABS: MEAN CORPUSCULAR HEMOGLOBIN 32.2 pg (27.5-34.5); MEAN CORPUSCULAR HGB CONC 32.8 g/dL (33.2-36.2); MEAN PLATELET VOLUME 9.1 fL (7.4-10.4); PLATELET COUNT 532 x10^3/uL (130-400); RED CELL DISTRIBUTION WIDTH 14.7 % (9.4-14.8)
[2020-07-24 05:53] LABS: ALBUMIN 1.9 g/dL (3.4-5.0); ANION GAP 6 mmol/L (5-15); CHLORIDE 101 mmol/L (98-107); CREATININE 0.69 mg/dL (0.7-1.3)
[2020-07-24 05:55] LABS: MD YES
[2020-07-24 06:18] LABS: <RBC MORPHOLOGY> NORMAL; BAND#(MANUAL) 0.75 x10^3/uL; BANDS%(MANUAL) 3 % (0-7); LYMPH#(MANUAL) 1.51 x10^3/uL (1-3.4); LYMPHS% (MANUAL) 6 % (22-44); MONOS% (MANUAL) 4 % (2-9); SEG#(MANUAL) 21.84 x10^3/uL (1.8-6.8); SEGS% (MANUAL) 87 % (42-75)
[2020-07-24 06:21] LABS: <PLATELET ESTIMATE> INCREASED; <PLT MORPHOLOGY> NORMAL PLT MORPH
[2020-07-24 07:20] VITALS: BP 147/79
[2020-07-24] MEDS: MULTIVITS,STRESS FORMULA 1 TABLET PO SCH (08:17)
[2020-07-24] MEDS: ZINC SULFATE 220 MG CAPSULE PO SCH (08:17)
[2020-07-24] MEDS: CHOLECALCIFEROL 5,000u TAB PO SCH (08:17)
[2020-07-24] MEDS: ASCORBIC ACID 500 MG TABLET PO SCH ×2 (08:17→16:45)
[2020-07-24] MEDS: ONDANSETRON ODT 4 MG PO PRN ×2 (08:17→18:12)
[2020-07-24] MEDS: INSULIN LISPRO 100 UNITS/ML, PEN SQ-INSULIN SCH ×4 (08:18→21:06)
[2020-07-24] MEDS: FAMOTIDINE 20 MG TABLET PO SCH ×2 (09:00→21:03)
[2020-07-24] MEDS: POTASSIUM CHLORIDE 20 MEQ in SODIUM CHLORIDE 0.9% 250 ML IV SCH ×2 (09:37→21:26)
[2020-07-24] MEDS: LACTATED RINGERS 1,000 ML IV SCH ×2 (11:44→21:00)
[2020-07-24 12:15] VITALS: BP 164/92
[2020-07-24] MEDS: HYDROmorphone 1 MG/ML, 1ML INJ IV PRN ×3 (18:12→23:38)
[2020-07-24 19:19] VITALS: BP 144/84
[2020-07-24] MEDS: ZOLPIDEM 5MG TABLET PO SCH (21:03)
[2020-07-24] MEDS: K-PHOS NEUTRAL 250MG TAB PO SCH (21:03)
[2020-07-24] MEDS: INSULIN GLARGINE 100 UNITS/ML, PEN SQ-INSULIN SCH (21:05)
[2020-07-25 00:50] VITALS: BP 122/75
[2020-07-25] MEDS: HYDROmorphone 1 MG/ML, 1ML INJ IV PRN ×2 (02:56→07:37)
[2020-07-25 05:54] LABS: BASOPHILS % (AUTO) 0 % (0-1); EOSINOPHILS % (AUTO) 1 % (1-7); LYMPHOCYTES % (AUTO) 11 % (22-44); MEAN CORPUSCULAR HEMOGLOBIN 32.7 pg (27.5-34.5); MEAN CORPUSCULAR HGB CONC 33.7 g/dL (33.2-36.2); MEAN PLATELET VOLUME 9.1 fL (7.4-10.4); MONOCYTES % (AUTO) 10 % (2-9); NEUTROPHILS % (AUTO) 78 % (42-75); PLATELET COUNT 650 x10^3/uL (130-400); RED CELL DISTRIBUTION WIDTH 15.3 % (9.4-14.8)
[2020-07-25] MEDS: VANCOMYCIN 50 MG/ML ORAL SUSP PO SCH ×4 (06:02→23:08)
[2020-07-25 06:21] LABS: ANION GAP 9 mmol/L (5-15); CALCIUM 8.4 mg/dL (8.5-10.1); CHLORIDE 102 mmol/L (98-107); CREATININE 0.65 mg/dL (0.7-1.3)
[2020-07-25 06:22] LABS: ALBUMIN 1.9 g/dL (3.4-5.0)
[2020-07-25 06:52] LABS: MD SCAN
[2020-07-25] MEDS: FAMOTIDINE 20 MG TABLET PO SCH ×2 (07:37→20:51)
[2020-07-25] MEDS: MULTIVITS,STRESS FORMULA 1 TABLET PO SCH (07:37)
[2020-07-25] MEDS: K-PHOS NEUTRAL 250MG TAB PO SCH (07:37)
[2020-07-25] MEDS: CHOLECALCIFEROL 5,000u TAB PO SCH (07:37)
[2020-07-25] MEDS: ASCORBIC ACID 500 MG TABLET PO SCH ×2 (07:38→15:54)
[2020-07-25] MEDS: LACTATED RINGERS 1,000 ML IV SCH ×2 (07:38→19:43)
[2020-07-25] MEDS: ZINC SULFATE 220 MG CAPSULE PO SCH (07:38)
[2020-07-25 07:53] VITALS: BP 149/93
[2020-07-25] MEDS: INSULIN LISPRO 100 UNITS/ML, PEN SQ-INSULIN SCH ×4 (09:30→20:53)
[2020-07-25] MEDS: CYCLOBENZAPRINE 10 MG TABLET PO PRN ×3 (09:39→19:42)
[2020-07-25 13:17] VITALS: BP 143/76
[2020-07-25] MEDS: SIMETHICONE 80 MG CHEW TAB PO PRN (15:54)
[2020-07-25] MEDS ORDERED: OXYcodone/APAP 5/325MG TABLET PO PRN (16:30)
[2020-07-25 19:03] VITALS: BP 120/81
[2020-07-25] MEDS: ZOLPIDEM 5MG TABLET PO SCH (20:51)
[2020-07-25] MEDS: INSULIN GLARGINE 100 UNITS/ML, PEN SQ-INSULIN SCH (20:52)
[2020-07-26 01:01] VITALS: BP 127/78
[2020-07-26] MEDS: CYCLOBENZAPRINE 10 MG TABLET PO PRN (03:46)
[2020-07-26] MEDS: VANCOMYCIN 50 MG/ML ORAL SUSP PO SCH (05:10)
[2020-07-26] MEDS: LACTATED RINGERS 1,000 ML IV SCH (05:28)
[2020-07-26 06:10] LABS: ALBUMIN 1.9 g/dL (3.4-5.0); ANION GAP 7 mmol/L (5-15); CALCIUM 8.2 mg/dL (8.5-10.1); CHLORIDE 102 mmol/L (98-107)
[2020-07-26 06:15] LABS: ALANINE AMINOTRANSFERASE 38 U/L (12-78); ALKALINE PHOSPHATASE 89 U/L (45-117); BILIRUBIN,TOTAL 1.1 mg/dL (0.2-1.0); CREATININE 0.72 mg/dL (0.7-1.3); TOTAL PROTEIN 6.5 g/dL (6.4-8.2)
[2020-07-26 07:00] VITALS: BP 126/78
[2020-07-26] MEDS: ZINC SULFATE 220 MG CAPSULE PO SCH (07:43)
[2020-07-26] MEDS: ASCORBIC ACID 500 MG TABLET PO SCH (07:44)
[2020-07-26] MEDS: FAMOTIDINE 20 MG TABLET PO SCH (07:44)
[2020-07-26] MEDS: ACETAMINOPHEN 325 MG TABLET PO PRN (07:44)
[2020-07-26] MEDS: CHOLECALCIFEROL 5,000u TAB PO SCH (07:44)
[2020-07-26] MEDS: MULTIVITS,STRESS FORMULA 1 TABLET PO SCH (07:44)
[2020-07-26] MEDS: INSULIN LISPRO 100 UNITS/ML, PEN SQ-INSULIN SCH (07:45)
[2020-07-26 07:58] LABS: MEAN CORPUSCULAR HEMOGLOBIN 31.5 pg (27.5-34.5); PLATELET COUNT 734 x10^3/uL (130-400); RED BLOOD COUNT 3.13 x10^6/uL (4.38-5.82)
[2020-07-26 08:17] LABS: MD YES
[2020-07-26 08:19] LABS: <PLATELET ESTIMATE> INCREASED; <PLT MORPHOLOGY> NORMAL PLT MORPH; <RBC MORPHOLOGY> NORMAL; BAND#(MANUAL) 0.18 x10^3/uL; BANDS%(MANUAL) 1 % (0-7); EOS#(MANUAL) 0.53 x10^3/uL (0.0-0.4); EOS% (MANUAL) 3 % (1-7); LYMPH#(MANUAL) 2.82 x10^3/uL (1-3.4); LYMPHS% (MANUAL) 16 % (22-44); MONOS#(MANUAL) 1.23 x10^3/uL (0.3-2.7); MONOS% (MANUAL) 7 % (2-9); SEG#(MANUAL) 12.85 x10^3/uL (1.8-6.8); SEGS% (MANUAL) 73 % (42-75)
[2020-07-26] MEDS ORDERED: ASCO500T9 PO (08:30)
[2020-07-26] MEDS ORDERED: VANC1VIA3 PO ×3 (08:30→13:30)
[2020-07-26] MEDS ORDERED: CHOL500045 PO (08:30)
[2020-07-26] MEDS ORDERED: OXYC1TAB14 PO ×3 (08:30→13:30)
== END 2020-07-26 10:24 | disposition home or self-care (01) | DRG 871 ==
LOC: ED 20:07 → 3N 20:40 → 5SO 07-16 01:59 → 4EST 07-21 18:47 → 3N 07-24 16:28
PROVIDERS: ADMIT Family Medicine; ATTEND Family Medicine
PROC: 0FJD8ZZ Inspection of Pancreatic Duct, Via Natural or Artificial Opening Endoscopic (ICD-10-PCS; principal; 2020-07-18 11:30)
DX: A41.9 Sepsis, unspecified organism (principal); N17.0 Acute kidney failure with tubular necrosis; K85.91 Acute pancreatitis with uninfected necrosis, unspecified; K83.1 Obstruction of bile duct; A04.72 Enterocolitis due to Clostridium difficile, not specified as recurrent; E46 Unspecified protein-calorie malnutrition; E87.1 Hypo-osmolality and hyponatremia; K86.3 Pseudocyst of pancreas; E66.9 Obesity, unspecified; E83.39 Other disorders of phosphorus metabolism; E87.6 Hypokalemia; R73.9 Hyperglycemia, unspecified; R80.9 Proteinuria, unspecified; Z20.822 Contact with and (suspected) exposure to COVID-19; F12.90 Cannabis use, unspecified, uncomplicated; I10 Essential (primary) hypertension; N20.0 Calculus of kidney; Z87.442 Personal history of urinary calculi; Z68.30 Body mass index [BMI] 30.0-30.9, adult
CPT/HCPCS: 36415; 96361; 96374; 96375; 99285; J3370; 71045; 74176; 74177; 74181; 76700; 80053; 80069; 80307; 81001; 82787; 82962; 83036; 83605; 83690; 83735; 84478; 84484; 85025; 86038; 86140; 87040; 87324; 87635; 93005; 93306; 93356; G0378; J0690; J0696; J1170; J1885; J2250; J2270; J2405; J2543; J2550; J2704; J2710; J3010; J3480; Q0162; Q9967; C1769; J0330; J0360; J1815; J7030; J7040; J7050; J7120

== ENCOUNTER 2020-07-31 21:34 | Emergency (ER) | payer BC ==
[~2020-07-31] VITALS: Ht 188 cm; Wt 99.2 kg
[~2020-07-31 21:34] MED LIST: ASCO500T9 PO; CHOL500045 PO; OXYC1TAB14 PO; VANC1VIA36 PO
[2020-07-31] MEDS ORDERED: SODIUM CHLORIDE 0.9% 1,000ML IVBOLUS ONE (22:30)
[2020-07-31 22:31] LABS: MEAN CORPUSCULAR HEMOGLOBIN 31.5 pg (27.5-34.5); MEAN CORPUSCULAR HGB CONC 32.9 g/dL (33.2-36.2); MEAN PLATELET VOLUME 9.1 fL (7.4-10.4); PLATELET COUNT 789 x10^3/uL (130-400); RED BLOOD COUNT 3.43 x10^6/uL (4.38-5.82)
[2020-07-31 22:34] LABS: MD YES
[2020-07-31 22:42] LABS: ALBUMIN 2.9 g/dL (3.4-5.0); ANION GAP 9 mmol/L (5-15); CHLORIDE 101 mmol/L (98-107)
[2020-07-31 22:46] LABS: TROPONIN I < 0.015 ng/mL (0.000-0.045)
[2020-07-31 22:52] LABS: BASOS#(MANUAL) 0.52 x10^3/uL (0-0.1); BASOS% (MANUAL) 3 % (0-1); LYMPHS% (MANUAL) 7 % (22-44); MONOS% (MANUAL) 7 % (2-9); SEG#(MANUAL) 14.28 x10^3/uL (1.8-6.8); SEGS% (MANUAL) 83 % (42-75)
[2020-07-31 22:53] LABS: <PLATELET ESTIMATE> INCREASED; <PLT MORPHOLOGY> NORMAL PLT MORPH; <RBC MORPHOLOGY> NORMAL
[2020-07-31] MEDS ORDERED: OMNIPAQUE 350 MG/ML, 75ML BOTTLE ONE (23:31)
--- NOTE | 2020-07-31 23:53 | NUR ---
ERP TO BEDSIDE TO REVIEW TESTING VSS
[2020-08-01 00:28] VITALS: BP 129/88
== END 2020-08-01 00:34 | disposition home or self-care (01) ==
LOC: ED 22:07
DX: K86.3 Pseudocyst of pancreas (principal); R73.9 Hyperglycemia, unspecified; R00.0 Tachycardia, unspecified; R07.89 Other chest pain; R06.02 Shortness of breath
CPT/HCPCS: 36415; 71275; 80048; 82040; 84484; 85025; 93005; 96360; 99285; J7030; Q9967

== ENCOUNTER → 2020-08-07 | Outpatient (CLI) | payer BC ==
[~2020-08-07] MED LIST changes: +OMNIPAQUE 350 MG/ML, 100ML BOTTLE ONE
== END | disposition home or self-care (01) ==
LOC: CFH 12:03
PROVIDERS: ATTEND Physician Assistant Medical
DX: K86.3 Pseudocyst of pancreas (principal); K85.21 Alcohol induced acute pancreatitis with uninfected necrosis; D72.9 Disorder of white blood cells, unspecified; K86.2 Cyst of pancreas
CPT/HCPCS: 74170; Q9967

== ENCOUNTER 2020-08-21 06:49 | Day surgery (SDC) | payer BC ==
[~2020-08-21] VITALS: Ht 188 cm; Wt 95.9 kg
[~2020-08-21 06:49] MED LIST changes: -OMNIPAQUE 350 MG/ML, 100ML BOTTLE ONE
[2020-08-21] MEDS ORDERED: LIDOCAINE-MPF 1%, 2ML ONE (07:27)
[2020-08-21] MEDS ORDERED: CHLORHEXIDINE 15 ML UDC ONE (07:27)
[2020-08-21 07:40] VITALS: BP 133/83
[2020-08-21] MEDS ORDERED: ASCO500T93 PO (07:45)
[2020-08-21] MEDS ORDERED: CHOL10003 PO (07:45)
[2020-08-21] MEDS ORDERED: IBUP200T64 PO (07:45)
[2020-08-21] MEDS ORDERED: AMOX1TAB26 PO (07:45)
[2020-08-21] MEDS ORDERED: CHLORHEXIDINE 15 ML UDC PO ONE (08:00)
[2020-08-21] MEDS ORDERED: LIDOCAINE-MPF 1%, 2ML INFIL ONE (08:00)
[2020-08-21] MEDS ORDERED: LACTATED RINGERS 1,000 ML IV SCH (08:00)
[2020-08-21] MEDS ORDERED: MIDAZOLAM 1 MG/ML, 2ML ONE (08:32)
[2020-08-21] MEDS ORDERED: SUCCINYLCHOLINE 20 MG/ML, 10ML ONE (08:34)
[2020-08-21] MEDS ORDERED: ROCURONIUM 10 MG/ML,10ML ONE (08:34)
[2020-08-21] MEDS ORDERED: PROPOFOL 10 MG/ML, 20ML ONE (08:34)
[2020-08-21] MEDS ORDERED: DEXAMETHASONE 4 MG/ML, 1ML ONE (08:34)
[2020-08-21] MEDS ORDERED: ONDANSETRON 2MG/ML, 2ML ONE (08:34)
[2020-08-21] MEDS ORDERED: FENTANYL PF 100 MCG/2ML IV PRN (09:30)
[2020-08-21] MEDS ORDERED: DIAZEPAM 5 MG/ML, 2ML IV PRN ×2 (09:30)
[2020-08-21] MEDS ORDERED: LABETALOL 5MG/ML, 20ML IV PRN (09:30)
[2020-08-21] MEDS ORDERED: PROMETHAZINE 25 MG/ML, 1ML IV PRN (09:30)
[2020-08-21] MEDS ORDERED: MEPERIDINE/PF 25MG/0.5ML IVPush PRN (09:30)
[2020-08-21] MEDS ORDERED: KETOROLAC 30 MG/1 ML IV PRN (09:30)
[2020-08-21] MEDS ORDERED: ALBUTEROL SULFATE 2.5 MG/3 ML NPPB PRN (09:30)
[2020-08-21] MEDS ORDERED: hydrALAzine 20 MG/ML, 1ML IV PRN (09:30)
[2020-08-21] MEDS ORDERED: METOCLOPRAMIDE 5 MG/ML, 2ML IV PRN (09:30)
[2020-08-21] MEDS ORDERED: ONDANSETRON 2MG/ML, 2ML IVPush PRN (09:30)
[2020-08-21] MEDS ORDERED: OXYcodone 5 MG/5 ML ORAL.SOL UDC PO PRN (09:30)
[2020-08-21] MEDS ORDERED: HYDROmorphone 1 MG/ML, 1ML INJ IV PRN (09:30)
== END 2020-08-21 10:32 | disposition home or self-care (01) ==
LOC: OUT 06:49
PROVIDERS: ATTEND Internal Medicine Geriatric Medicine
DX: K86.3 Pseudocyst of pancreas (principal); K85.20 Alcohol induced acute pancreatitis without necrosis or infection; E11.9 Type 2 diabetes mellitus without complications; Z20.822 Contact with and (suspected) exposure to COVID-19; Z79.891 Long term (current) use of opiate analgesic; Z79.899 Other long term (current) drug therapy; Z83.3 Family history of diabetes mellitus; Z80.9 Family history of malignant neoplasm, unspecified
CPT/HCPCS: 43240; 87635; C1874; J0330; J1100; J2250; J2405; J2704; J7120

== ENCOUNTER 2020-08-28 11:53 | Inpatient (IN) | payer BC ==
[~2020-08-28] VITALS: Ht 188 cm; Wt 97.0 kg
[~2020-08-28 11:53] MED LIST changes: +AMOX1TAB26 PO; +ASCO500T93 PO; +CHOL10003 PO; +IBUP200T64 PO
[2020-08-28] MEDS ORDERED: SODIUM CHLORIDE 0.9% 1,000ML IVBOLUS ONE (12:30)
[2020-08-28] MEDS ORDERED: MORPHINE SULFATE 4 MG/ML, 1ML IVPush PRN (12:30)
[2020-08-28] MEDS ORDERED: ONDANSETRON 2MG/ML, 2ML IVPush ONE (12:30)
[2020-08-28 12:54] LABS: MEAN CORPUSCULAR HGB CONC 32.2 g/dL (33.2-36.2); MEAN PLATELET VOLUME 9.6 fL (7.4-10.4); PLATELET COUNT 500 x10^3/uL (130-400); RED BLOOD COUNT 3.97 x10^6/uL (4.38-5.82); RED CELL DISTRIBUTION WIDTH 16.3 % (9.4-14.8)
[2020-08-28 13:10] LABS: ALANINE AMINOTRANSFERASE 19 U/L (12-78); ALBUMIN 2.7 g/dL (3.4-5.0); ANION GAP 11 mmol/L (5-15); CHLORIDE 106 mmol/L (98-107); CREATININE 1.09 mg/dL (0.7-1.3)
[2020-08-28 13:13] LABS: ALKALINE PHOSPHATASE 126 U/L (45-117); BILIRUBIN,TOTAL 0.4 mg/dL (0.2-1.0); MD YES; TOTAL PROTEIN 8.2 g/dL (6.4-8.2)
[2020-08-28 13:16] LABS: <PLATELET ESTIMATE> INCREASED; <PLT MORPHOLOGY> NORMAL PLT MORPH; <RBC MORPHOLOGY> NORMAL; BAND#(MANUAL) 4.48 x10^3/uL; BANDS%(MANUAL) 27 % (0-7); EOS#(MANUAL) 0.33 x10^3/uL (0.0-0.4); EOS% (MANUAL) 2 % (1-7); LYMPH#(MANUAL) 1.33 x10^3/uL (1-3.4); LYMPHS% (MANUAL) 8 % (22-44); MONOS#(MANUAL) 1.16 x10^3/uL (0.3-2.7); MONOS% (MANUAL) 7 % (2-9); MYELOCYTES# (MANUAL) 0.17 x10^3/uL (0-0); MYELOCYTES% (MANUAL) 1 % (0-0); SEG#(MANUAL) 9.13 x10^3/uL (1.8-6.8); SEGS% (MANUAL) 55 % (42-75)
--- NOTE | 2020-08-28 13:39 | NUR ---
PT STATES HAD A CYST DRAINED LEFT ABD AND PUT A STENT LAST THURSDAY AND PULL IN 4-6 WEEKS. SUN THU COULD WALK AROUND FEVER THURSDAY NIGHT AND N/V THURSDAY NIGHT. PAIN 7/10 ABD LOWER BILATERAL, BUT MOSTLY ON THE LEFT SIDE.
--- NOTE | 2020-08-28 13:43 | NUR ---
PT STATES MORPHINE DOESN'T WORK AND THAT DILAUID DOES.
[2020-08-28] MEDS ORDERED: POTASSIUM CHLORIDE 40 MEQ in SODIUM CHLORIDE 0.9% 500 ML IV ONE (14:00)
[2020-08-28] MEDS ORDERED: HYDROmorphone 1 MG/ML, 1ML INJ ONE (14:20)
[2020-08-28] MEDS ORDERED: ONDANSETRON 2MG/ML, 2ML ONE (14:21)
[2020-08-28] MEDS ORDERED: LACTATED RINGERS 1,000 ML IV ONE (14:30)
[2020-08-28] MEDS ORDERED: METRONIDAZOLE PMX 500MG/100ML 100 ML IV ONE (14:30)
[2020-08-28] MEDS ORDERED: HYDROmorphone 1 MG/ML, 1ML INJ IV ONE (14:30)
[2020-08-28] MEDS ORDERED: HYDROmorphone 2 MG/ML, 1ML IVPush ONE (14:30)
[2020-08-28] MEDS ORDERED: CEFTRIAXONE 1,000 MG in DEXTROSE 5% 50 ML IVPB ONE (14:30)
[2020-08-28] MEDS ORDERED: OMNIPAQUE 350 MG/ML, 100ML BOTTLE ONE (15:22)
--- NOTE | 2020-08-28 15:29 | NUR ---
BREAK RN: 1L NS BOLUS STARTED W/ ABX. PT MEDICATED FOR PAIN. PT TACHYCARDIC, OTHER VS WDL.
[2020-08-28] MEDS ORDERED: ONDANSETRON ODT 4 MG PO PRN (15:30)
[2020-08-28] MEDS ORDERED: ACETAMINOPHEN 325 MG TABLET PO PRN (15:30)
[2020-08-28] MEDS ORDERED: DIPHENHYDRAMINE 25 MG CAPSULE PO PRN (15:30)
[2020-08-28] MEDS ORDERED: morphine SULFATE 10 MG/ML, 1ML IVPush PRN (15:30)
[2020-08-28] MEDS: LACTATED RINGERS 1,000 ML IV SCH (15:30)
[2020-08-28] MEDS ORDERED: MAGNESIUM SULFATE PMX 4GM/100M 100 ML IVPB ONE (15:35)
[2020-08-28] MEDS ORDERED: METRONIDAZOLE PMX 500MG/100ML 100 ML ONE (16:18)
[2020-08-28 16:25] LABS: CLOSTRIDIUM DIFFICILE ANTIGEN POSITIVE; CLOSTRIDIUM DIFFICILE TOXIN POSITIVE (Negative)
--- NOTE | 2020-08-28 16:29 | NUR ---
REPORT GIVEN TO QING BOYCE RM [id number].
--- NOTE | 2020-08-28 16:37 | NUR ---
PT TRANSPORTED WITH TECH ALL BELONGINGS SENT WITH PATIENT TO FLOOR.
[2020-08-28 16:47] VITALS: BP 127/73
[2020-08-28] MEDS: ENOXAPARIN 40 MG/0.4 ML SQ SCH (17:37)
[2020-08-28] MEDS: POTASSIUM CHLORIDE 20 MEQ TAB.ER.PRT PO SCH (17:37)
[2020-08-28] MEDS: VANCOMYCIN 50 MG/ML ORAL SUSP PO SCH ×2 (17:58→20:30)
[2020-08-28] MEDS: ONDANSETRON 2MG/ML, 2ML IVPush PRN (17:58)
[2020-08-28] MEDS ORDERED: HYDROmorphone 1 MG/ML, 1ML INJ IV PRN (18:30)
[2020-08-28] MEDS ORDERED: PROMETHAZINE 25 MG/ML, 1ML IM PRN (20:00)
[2020-08-28] MEDS: PROCHLORPERAZINE 5 MG/ML, 2ML IV PRN (20:22)
[2020-08-28] MEDS: HYDROcodone/APAP 5/325 TABLET PO PRN (20:30)
[2020-08-28 21:07] VITALS: BP 112/59
[2020-08-28] MEDS: HYDROmorphone 1 MG/ML, 1ML INJ IV PRN (22:32)
[2020-08-29] MEDS: LACTATED RINGERS 1,000 ML IV SCH ×3 (00:18→19:42)
[2020-08-29 02:20] VITALS: BP 115/59
[2020-08-29] MEDS: ONDANSETRON 2MG/ML, 2ML IVPush PRN ×4 (02:28→19:42)
[2020-08-29] MEDS: HYDROmorphone 1 MG/ML, 1ML INJ IV PRN ×5 (02:28→19:45)
[2020-08-29] MEDS: VANCOMYCIN 50 MG/ML ORAL SUSP PO SCH ×4 (02:30→20:03)
[2020-08-29] MEDS ORDERED: INSU100V40 SQ (03:03)
[2020-08-29] MEDS: PROCHLORPERAZINE 5 MG/ML, 2ML IV PRN ×2 (04:22→14:43)
[2020-08-29] MEDS: HYDROcodone/APAP 5/325 TABLET PO PRN ×3 (04:27→09:17)
[2020-08-29 05:49] LABS: ANION GAP 12 mmol/L (5-15); CALCIUM 8.4 mg/dL (8.5-10.1); CHLORIDE 103 mmol/L (98-107)
[2020-08-29 05:50] LABS: MEAN CORPUSCULAR HEMOGLOBIN 29.4 pg (27.5-34.5); MEAN CORPUSCULAR HGB CONC 33.3 g/dL (33.2-36.2); MEAN PLATELET VOLUME 9.5 fL (7.4-10.4); PLATELET COUNT 412 x10^3/uL (130-400); RED CELL DISTRIBUTION WIDTH 16.6 % (9.4-14.8)
[2020-08-29 06:36] VITALS: BP 145/81
[2020-08-29 06:48] LABS: MD YES
[2020-08-29 06:50] LABS: BAND#(MANUAL) 2.26 x10^3/uL; BANDS%(MANUAL) 17 % (0-7); LYMPH#(MANUAL) 0.93 x10^3/uL (1-3.4); LYMPHS% (MANUAL) 7 % (22-44); MONOS#(MANUAL) 2.66 x10^3/uL (0.3-2.7); MONOS% (MANUAL) 20 % (2-9); SEG#(MANUAL) 7.45 x10^3/uL (1.8-6.8); SEGS% (MANUAL) 56 % (42-75)
[2020-08-29 06:51] LABS: <PLATELET ESTIMATE> INCREASED; <PLT MORPHOLOGY> NORMAL PLT MORPH; <RBC MORPHOLOGY> NORMAL
[2020-08-29] MEDS: POTASSIUM CHLORIDE 20 MEQ TAB.ER.PRT PO SCH ×2 (08:04→19:42)
[2020-08-29] MEDS ORDERED: POTASSIUM CHLORIDE 40 MEQ in SODIUM CHLORIDE 0.9% 500 ML IV ONE (09:30)
[2020-08-29] MEDS ORDERED: MAGNESIUM SULFATE PMX 4GM/100M 100 ML IVPB ONE (09:30)
[2020-08-29 12:31] VITALS: BP 144/86
[2020-08-29] MEDS: ENOXAPARIN 40 MG/0.4 ML SQ SCH (19:00)
[2020-08-29 19:30] VITALS: BP 160/89
[2020-08-30] VITALS (7 sets, daily range): BP systolic 151–181; BP diastolic 88–112
[2020-08-30] MEDS: PROCHLORPERAZINE 5 MG/ML, 2ML IV PRN ×4 (00:07→21:55)
[2020-08-30] MEDS: HYDROmorphone 1 MG/ML, 1ML INJ IV PRN ×6 (00:12→21:55)
[2020-08-30] MEDS: VANCOMYCIN 50 MG/ML ORAL SUSP PO SCH ×4 (02:00→21:54)
[2020-08-30] MEDS: HYDROcodone/APAP 5/325 TABLET PO PRN ×3 (02:00→11:12)
[2020-08-30] MEDS: hydrALAzine 20 MG/ML, 1ML IVPush PRN ×2 (02:35→07:47)
[2020-08-30] MEDS: LACTATED RINGERS 1,000 ML IV SCH ×2 (03:02→11:13)
[2020-08-30 05:37] LABS: MEAN CORPUSCULAR HEMOGLOBIN 29.5 pg (27.5-34.5); MEAN CORPUSCULAR HGB CONC 33.6 g/dL (33.2-36.2); MEAN PLATELET VOLUME 9.1 fL (7.4-10.4); PLATELET COUNT 486 x10^3/uL (130-400); RED BLOOD COUNT 3.37 x10^6/uL (4.38-5.82); RED CELL DISTRIBUTION WIDTH 16.8 % (9.4-14.8)
[2020-08-30 05:46] LABS: ANION GAP 11 mmol/L (5-15); CALCIUM 8.5 mg/dL (8.5-10.1); CHLORIDE 99 mmol/L (98-107)
[2020-08-30 05:47] LABS: CREATININE 0.69 mg/dL (0.7-1.3)
[2020-08-30 06:21] LABS: MD YES
[2020-08-30 06:24] LABS: BAND#(MANUAL) 0.28 x10^3/uL; BANDS%(MANUAL) 2 % (0-7); BASOS#(MANUAL) 0.14 x10^3/uL (0-0.1); BASOS% (MANUAL) 1 % (0-1); EOS#(MANUAL) 0.14 x10^3/uL (0.0-0.4); EOS% (MANUAL) 1 % (1-7); LYMPH#(MANUAL) 1.53 x10^3/uL (1-3.4); LYMPHS% (MANUAL) 11 % (22-44); METAMYELOCYTES# (MANUAL) 0.14 x10^3/uL (0-0); METAMYELOCYTES% (MANUAL) 1 % (0-1); MONOS#(MANUAL) 1.39 x10^3/uL (0.3-2.7); MONOS% (MANUAL) 10 % (2-9); SEG#(MANUAL) 10.29 x10^3/uL (1.8-6.8); SEGS% (MANUAL) 74 % (42-75)
[2020-08-30 06:25] LABS: ANISOCYTOSIS 1+; TOXIC GRAN 1+
[2020-08-30 06:26] LABS: <PLATELET ESTIMATE> INCREASED; GIANT PLATELETS 1+
[2020-08-30 06:28] LABS: MICROCYTOSIS 1+; POLYCHROMASIA 1+
[2020-08-30] MEDS: POTASSIUM CHLORIDE 20 MEQ TAB.ER.PRT PO SCH ×2 (07:48→19:47)
[2020-08-30] MEDS: ONDANSETRON 2MG/ML, 2ML IVPush PRN ×2 (08:30→16:07)
[2020-08-30] MEDS ORDERED: OMNIPAQUE 350 MG/ML, 75ML BOTTLE ONE (11:50)
[2020-08-30] MEDS ORDERED: MAGNESIUM SULFATE PMX 2GM/50ML 50 ML IV ONE (15:00)
[2020-08-30] MEDS ORDERED: LIDOCAINE 1%, 10ML ONE (15:04)
[2020-08-30] MEDS ORDERED: FENTANYL PF 100 MCG/2ML ONE (15:24)
[2020-08-30] MEDS ORDERED: NALOXONE 1 MG/ML, 2ML ONE (15:24)
[2020-08-30] MEDS ORDERED: ONDANSETRON 2MG/ML, 2ML ONE (15:25)
[2020-08-30] MEDS: POTASSIUM CHLORIDE 40 MEQ in SODIUM CHLORIDE 0.9% 500 ML IV SCH ×2 (16:08→23:34)
[2020-08-30] MEDS: ENOXAPARIN 40 MG/0.4 ML SQ SCH (19:00)
[2020-08-30] MEDS: METHOCARBAMOL 500 MG TABLET PO PRN (23:45)
[2020-08-31 01:53] VITALS: BP 152/81
[2020-08-31] MEDS: HYDROmorphone 1 MG/ML, 1ML INJ IV PRN ×5 (02:04→20:28)
[2020-08-31] MEDS: ONDANSETRON 2MG/ML, 2ML IVPush PRN ×2 (02:04→20:27)
[2020-08-31] MEDS: LACTATED RINGERS 1,000 ML IV SCH (03:20)
[2020-08-31] MEDS: VANCOMYCIN 50 MG/ML ORAL SUSP PO SCH ×4 (04:00→22:11)
[2020-08-31 05:27] LABS: CHLORIDE 97 mmol/L (98-107)
[2020-08-31 05:28] LABS: MEAN CORPUSCULAR HEMOGLOBIN 29.3 pg (27.5-34.5); MEAN CORPUSCULAR HGB CONC 33.5 g/dL (33.2-36.2); MEAN PLATELET VOLUME 8.8 fL (7.4-10.4); PLATELET COUNT 405 x10^3/uL (130-400); RED CELL DISTRIBUTION WIDTH 16.8 % (9.4-14.8)
[2020-08-31 05:35] LABS: ANION GAP 10 mmol/L (5-15); CREATININE 0.54 mg/dL (0.7-1.3)
[2020-08-31 06:09] LABS: MD YES
[2020-08-31 06:10] LABS: BAND#(MANUAL) 1.17 x10^3/uL; BANDS%(MANUAL) 9 % (0-7); BASOS#(MANUAL) 0.13 x10^3/uL (0-0.1); BASOS% (MANUAL) 1 % (0-1); LYMPH#(MANUAL) 1.56 x10^3/uL (1-3.4); LYMPHS% (MANUAL) 12 % (22-44); METAMYELOCYTES# (MANUAL) 0.13 x10^3/uL (0-0); METAMYELOCYTES% (MANUAL) 1 % (0-1); MONOS#(MANUAL) 1.69 x10^3/uL (0.3-2.7); MONOS% (MANUAL) 13 % (2-9); MYELOCYTES# (MANUAL) 0.13 x10^3/uL (0-0); MYELOCYTES% (MANUAL) 1 % (0-0); SEG#(MANUAL) 8.19 x10^3/uL (1.8-6.8); SEGS% (MANUAL) 63 % (42-75)
[2020-08-31 06:12] LABS: ANISOCYTOSIS 1+; MICROCYTOSIS 1+; POLYCHROMASIA 1+; TOXIC GRAN 1+
[2020-08-31 06:13] LABS: <PLATELET ESTIMATE> INCREASED; <PLT MORPHOLOGY> NORMAL PLT MORPH
[2020-08-31] MEDS: POTASSIUM CHLORIDE 40 MEQ in SODIUM CHLORIDE 0.9% 500 ML IV SCH ×3 (06:24→20:27)
[2020-08-31] MEDS: PROCHLORPERAZINE 5 MG/ML, 2ML IV PRN ×3 (06:24→15:50)
[2020-08-31 08:28] VITALS: BP 168/84
[2020-08-31] MEDS: POTASSIUM CHLORIDE 20 MEQ TAB.ER.PRT PO SCH (08:57)
[2020-08-31] MEDS: HYDROcodone/APAP 5/325 TABLET PO PRN ×2 (09:01→18:05)
[2020-08-31] MEDS ORDERED: MAGNESIUM SULFATE PMX 4GM/100M 100 ML IVPB ONE (11:30)
[2020-08-31 14:45] VITALS: BP 147/87
[2020-08-31] MEDS: ENOXAPARIN 40 MG/0.4 ML SQ SCH (18:06)
[2020-08-31 19:33] VITALS: BP 155/95
[2020-08-31] MEDS: METHOCARBAMOL 500 MG TABLET PO PRN (22:11)
[2020-09-01 00:32] VITALS: BP 166/98
[2020-09-01] MEDS: POTASSIUM CHLORIDE 40 MEQ in SODIUM CHLORIDE 0.9% 500 ML IV SCH ×2 (01:58→08:15)
[2020-09-01] MEDS: ONDANSETRON 2MG/ML, 2ML IVPush PRN ×2 (04:11→08:15)
[2020-09-01] MEDS: VANCOMYCIN 50 MG/ML ORAL SUSP PO SCH ×2 (04:12→10:18)
[2020-09-01] MEDS: HYDROmorphone 1 MG/ML, 1ML INJ IV PRN ×2 (04:12→08:15)
[2020-09-01 04:55] VITALS: BP 160/88
[2020-09-01 05:56] LABS: MEAN CORPUSCULAR HEMOGLOBIN 29.4 pg (27.5-34.5); MEAN CORPUSCULAR HGB CONC 33.9 g/dL (33.2-36.2); MEAN PLATELET VOLUME 8.7 fL (7.4-10.4); PLATELET COUNT 410 x10^3/uL (130-400); RED BLOOD COUNT 3.24 x10^6/uL (4.38-5.82); RED CELL DISTRIBUTION WIDTH 16.8 % (9.4-14.8)
[2020-09-01 06:15] LABS: CHLORIDE 100 mmol/L (98-107)
[2020-09-01 06:28] LABS: ANION GAP 7 mmol/L (5-15); CALCIUM 7.6 mg/dL (8.5-10.1); CREATININE 0.56 mg/dL (0.7-1.3)
[2020-09-01 06:56] LABS: MD YES
[2020-09-01 06:57] LABS: REACTIVE LYMPHS # (MANUAL) 0.17 x10^3/uL (0-0); REACTIVE LYMPHS % (MANUAL) 1 % (0-0)
[2020-09-01 06:58] LABS: BAND#(MANUAL) 2.04 x10^3/uL; BANDS%(MANUAL) 12 % (0-7); EOS#(MANUAL) 0.17 x10^3/uL (0.0-0.4); EOS% (MANUAL) 1 % (1-7); LYMPHS% (MANUAL) 10 % (22-44); MONOS#(MANUAL) 1.53 x10^3/uL (0.3-2.7); MONOS% (MANUAL) 9 % (2-9); SEG#(MANUAL) 11.39 x10^3/uL (1.8-6.8); SEGS% (MANUAL) 67 % (42-75)
[2020-09-01 06:59] LABS: ANISOCYTOSIS 1+; POLYCHROMASIA 1+
[2020-09-01 07:00] LABS: <PLATELET ESTIMATE> INCREASED; <PLT MORPHOLOGY> NORMAL PLT MORPH; TOXIC GRAN 1+
[2020-09-01 07:18] VITALS: BP 165/98
[2020-09-01] MEDS ORDERED: BACL20TA PO (10:03)
[2020-09-01] MEDS ORDERED: HYDR-2214 PO (10:03)
[2020-09-01] MEDS ORDERED: TRAM50TA2 PO (10:03)
[2020-09-01] MEDS ORDERED: VANC1VIA36 PO (10:03)
== END 2020-09-01 12:14 | disposition home or self-care (01) | DRG 871 ==
LOC: ED 14:16 → SUATTDRO 14:41 → EDIP 15:03 → 3N 15:28 → 4WST 08-30 17:54 → 3N 08-31 17:29
PROVIDERS: ADMIT Hospitalist; ATTEND Hospitalist
PROC: 0W9B30Z Drainage of Left Pleural Cavity with Drainage Device, Percutaneous Approach (ICD-10-PCS; principal; 2020-08-30)
DX: A41.9 Sepsis, unspecified organism (principal); K85.91 Acute pancreatitis with uninfected necrosis, unspecified; A04.72 Enterocolitis due to Clostridium difficile, not specified as recurrent; J90 Pleural effusion, not elsewhere classified; K86.3 Pseudocyst of pancreas; F12.90 Cannabis use, unspecified, uncomplicated; E87.6 Hypokalemia; E83.42 Hypomagnesemia; E86.0 Dehydration; Z80.7 Family history of other malignant neoplasms of lymphoid, hematopoietic and related tissues; Z87.442 Personal history of urinary calculi; Z93.1 Gastrostomy status; Z90.49 Acquired absence of other specified parts of digestive tract; Z80.3 Family history of malignant neoplasm of breast
CPT/HCPCS: 32557; 36415; 82150; 83986; 87046; 87427; 89051; 89055; 96365; 96375; 99291; J3370; J3490; 71045; 71275; 74177; 80048; 80053; 82962; 83605; 83615; 83690; 83735; 84157; 85025; 87040; 87070; 87205; 87324; 93005; G0378; J0696; J1170; J1650; J2405; J3010; J3480; Q9967; J0360; J0780; J2310; J3475; J7030; J7040; J7120

== ENCOUNTER 2020-09-06 22:58 | Inpatient (IN) | payer BC ==
[~2020-09-06] VITALS: Ht 188 cm; Wt 87.1 kg
[~2020-09-06 22:58] MED LIST changes: +BACL20TA PO; +HYDR-2214 PO; +INSU100V40 SQ; +TRAM50TA2 PO
[2020-09-06] MEDS ORDERED: PROMETHAZINE 25 MG/ML, 1ML ONE (23:57)
[2020-09-06] MEDS ORDERED: HYDROmorphone 1 MG/ML, 1ML INJ ONE (23:58)
[2020-09-06] MEDS ORDERED: ONDANSETRON 2MG/ML, 2ML ONE (23:58)
[2020-09-07] MEDS ORDERED: PROMETHAZINE 25 MG/ML, 1ML IM ONE
[2020-09-07] MEDS ORDERED: HYDROmorphone 1 MG/ML, 1ML INJ IV ONE
[2020-09-07] MEDS ORDERED: MORPHINE SULFATE 4 MG/ML, 1ML IVPush PRN
[2020-09-07] MEDS ORDERED: SODIUM CHLORIDE FLUSH 10ML SYR IVF ONE
[2020-09-07] MEDS ORDERED: ONDANSETRON 2MG/ML, 2ML IVPush ONE
--- NOTE | 2020-09-07 00:05 | NUR ---
PIV STARTED PT MEDICATED PER JUN 01 RIGHTS VERIFIED PT PLACED ON O2 FOR RA SAT OF 86
[2020-09-07 00:09] LABS: MEAN CORPUSCULAR HEMOGLOBIN 28.4 pg (27.5-34.5); MEAN PLATELET VOLUME 8.8 fL (7.4-10.4); PLATELET COUNT 874 x10^3/uL (130-400); RED BLOOD COUNT 3.91 x10^6/uL (4.38-5.82); RED CELL DISTRIBUTION WIDTH 17.3 % (9.4-14.8)
[2020-09-07 00:19] LABS: ALANINE AMINOTRANSFERASE 21 U/L (12-78); ALBUMIN 1.5 g/dL (3.4-5.0); ANION GAP 12 mmol/L (5-15); CALCIUM 7.8 mg/dL (8.5-10.1); CHLORIDE 95 mmol/L (98-107); CREATININE 0.66 mg/dL (0.7-1.3)
[2020-09-07 00:24] LABS: ALKALINE PHOSPHATASE 139 U/L (45-117); BILIRUBIN,TOTAL 0.5 mg/dL (0.2-1.0); TOTAL PROTEIN 8.1 g/dL (6.4-8.2); TROPONIN I < 0.015 ng/mL (0.000-0.045)
[2020-09-07 00:53] LABS: BAND#(MANUAL) 2.28 x10^3/uL; BANDS%(MANUAL) 7 % (0-7); LYMPH#(MANUAL) 2.28 x10^3/uL (1-3.4); LYMPHS% (MANUAL) 7 % (22-44); MONOS#(MANUAL) 0.65 x10^3/uL (0.3-2.7); MONOS% (MANUAL) 2 % (2-9); MYELOCYTES# (MANUAL) 0.65 x10^3/uL (0-0); MYELOCYTES% (MANUAL) 2 % (0-0); SEG#(MANUAL) 26.41 x10^3/uL (1.8-6.8); SEGS% (MANUAL) 81 % (42-75)
[2020-09-07 00:54] LABS: ANISOCYTOSIS 1+; OTHER CELLS # (MANUAL) 0.33 x10^3/uL (0-0); OTHER CELLS % (MANUAL) 1 % (0-0)
[2020-09-07 00:55] LABS: POLYCHROMASIA 1+; TOXIC GRAN 2+
[2020-09-07 00:56] LABS: <PLATELET ESTIMATE> INCREASED
[2020-09-07 00:57] LABS: LARGE PLATELETS 1+
[2020-09-07] MEDS ORDERED: SODIUM CHLORIDE 0.9% 1,000ML IVBOLUS ONE ×2 (01:00)
[2020-09-07] MEDS ORDERED: OMNIPAQUE 350 MG/ML, 100ML BOTTLE ONE (01:34)
[2020-09-07] MEDS ORDERED: HYDROmorphone 1 MG/ML, 1ML INJ IVPush STA (01:36)
[2020-09-07] MEDS ORDERED: HYDROmorphone 1 MG/ML, 1ML INJ ONE (01:38)
--- NOTE | 2020-09-07 01:42 | NUR ---
TASK RN: PT MEDICATED PER MAY, NAD, APPEARS MORE COMFORTABLE AFTER MEDICATION ADMINISTRATION, Patient is resting comfortably in bed. Bed in lowest, rails engaged, call light on lap. LASHAWN.
[2020-09-07] MEDS ORDERED: VANCOMYCIN 2,200 MG in SODIUM CHLORIDE 0.9% 500 ML IV ONE (03:00)
[2020-09-07] MEDS ORDERED: VANCOMYCIN PER PHARMACY MC PRN (03:00)
[2020-09-07] MEDS ORDERED: PIPERACILLIN/TAZO 3.375 GM in DEXTROSE 5% 50 ML IVPB ONE (03:00)
--- NOTE | 2020-09-07 03:01 | NUR ---
ABX STARTED, CULTURES DRAWN PRIOR TO START
--- NOTE | 2020-09-07 03:10 | NUR ---
REPORT TO TANA AT THIS TIME
[2020-09-07 04:00] VITALS: BP 136/90
[2020-09-07] MEDS ORDERED: DOCUSATE 100 MG CAPSULE PO PRN (04:00)
[2020-09-07] MEDS ORDERED: hydrALAzine 20 MG/ML, 1ML IVPush PRN (04:00)
[2020-09-07] MEDS ORDERED: PROMETHAZINE 25 MG/ML, 1ML IM PRN (04:00)
[2020-09-07] MEDS: VANCOMYCIN 50 MG/ML ORAL SUSP PO SCH ×4 (04:30→22:56)
[2020-09-07] MEDS: ONDANSETRON 2MG/ML, 2ML IVPush PRN ×2 (04:34→12:55)
[2020-09-07] MEDS: OXYcodone IR 5MG TABLET PO PRN ×5 (04:35→21:44)
[2020-09-07] MEDS: HEPARIN 5,000 UNITS/ML, 1ML SQ SCH ×3 (05:16→19:44)
[2020-09-07] MEDS ORDERED: HYDROmorphone 2 MG/ML, 1ML IV ONE (06:00)
[2020-09-07 06:59] VITALS: BP 157/94
[2020-09-07 07:41] LABS: MICROSCOPIC NOT IND
[2020-09-07 08:06] LABS: AMPHETAMINE SCREEN, URINE Negative (Negative); BARBITURATE SCREEN, URINE Negative (Negative); BENZODIAZEPINE SCREEN, URINE Negative (Negative); CANNABINOID SCREEN, URINE Positive (Negative); COCAINE SCREEN, URINE Negative (Negative); METHADONE SCREEN, URINE Negative (Negative); OPIATE SCREEN, URINE Positive (Negative)
[2020-09-07 08:36] LABS: ALBUMIN 1.5 g/dL (3.4-5.0); TOTAL PROTEIN 7.3 g/dL (6.4-8.2)
[2020-09-07] MEDS: INSULIN LISPRO 100 UNITS/ML, PEN SQ-INSULIN SCH ×4 (09:00→20:51)
[2020-09-07] MEDS: ERTAPENEM 1 GM in SODIUM CHLORIDE 0.9% 50 ML IV SCH (09:40)
[2020-09-07] MEDS: ONDANSETRON ODT 4 MG PO PRN ×2 (10:13→16:15)
[2020-09-07 10:18] LABS: CLOSTRIDIUM DIFFICILE ANTIGEN NEGATIVE; CLOSTRIDIUM DIFFICILE TOXIN NEGATIVE (Negative)
[2020-09-07 12:24] VITALS: BP 158/100
[2020-09-07] MEDS ORDERED: HYDROmorphone 1 MG/ML, 1ML INJ IVPush ONE (13:00)
[2020-09-07] MEDS: HYDROmorphone 1 MG/ML, 1ML INJ IVPush PRN ×2 (16:06→20:42)
[2020-09-07 18:59] VITALS: BP 162/97
[2020-09-07] MEDS: KETOROLAC 30 MG/1 ML IVPush PRN (22:55)
[2020-09-08 00:21] VITALS: BP 136/86
[2020-09-08] MEDS: HYDROmorphone 1 MG/ML, 1ML INJ IVPush PRN ×5 (01:01→21:37)
[2020-09-08] MEDS: OXYcodone IR 5MG TABLET PO PRN ×6 (02:10→23:28)
[2020-09-08] MEDS: HEPARIN 5,000 UNITS/ML, 1ML SQ SCH ×3 (04:00→21:40)
[2020-09-08] MEDS: KETOROLAC 30 MG/1 ML IVPush PRN (04:23)
[2020-09-08] MEDS: VANCOMYCIN 50 MG/ML ORAL SUSP PO SCH ×4 (04:29→21:36)
[2020-09-08 05:08] LABS: MEAN CORPUSCULAR HEMOGLOBIN 29.1 pg (27.5-34.5); MEAN CORPUSCULAR HGB CONC 33.6 g/dL (33.2-36.2); PLATELET COUNT 687 x10^3/uL (130-400); RED BLOOD COUNT 3.31 x10^6/uL (4.38-5.82); RED CELL DISTRIBUTION WIDTH 17.3 % (9.4-14.8)
[2020-09-08 05:12] LABS: ALANINE AMINOTRANSFERASE 14 U/L (12-78); ALBUMIN 1.4 g/dL (3.4-5.0); ANION GAP 9 mmol/L (5-15); CALCIUM 7.8 mg/dL (8.5-10.1); CHLORIDE 98 mmol/L (98-107)
[2020-09-08 05:21] LABS: ALKALINE PHOSPHATASE 93 U/L (45-117); BILIRUBIN,TOTAL 0.4 mg/dL (0.2-1.0); CHOLESTEROL, TOTAL 72 mg/dL (140-239); CREATININE 0.48 mg/dL (0.7-1.3); HDL CHOL % 11 % (26-37); HDL CHOLESTEROL (DIRECT) 8 mg/dL (40-60); LDL CHOLESTEROL,CALCULATED 35 mg/dL (54-169); LDL/HDL RATIO 4.4 (0.5-3.0); TOTAL PROTEIN 6.9 g/dL (6.4-8.2); TRIGLYCERIDES 147 mg/dL (50-200); VLDL CHOLESTEROL 29 mg/dL (0-25)
[2020-09-08] MEDS: ERTAPENEM 1 GM in SODIUM CHLORIDE 0.9% 50 ML IV SCH (05:32)
[2020-09-08 05:44] LABS: BAND#(MANUAL) 1.64 x10^3/uL; BANDS%(MANUAL) 12 % (0-7); LYMPH#(MANUAL) 1.64 x10^3/uL (1-3.4); LYMPHS% (MANUAL) 12 % (22-44); METAMYELOCYTES# (MANUAL) 0.69 x10^3/uL (0-0); METAMYELOCYTES% (MANUAL) 5 % (0-1); MONOS#(MANUAL) 0.14 x10^3/uL (0.3-2.7); MONOS% (MANUAL) 1 % (2-9); MYELOCYTES# (MANUAL) 0.14 x10^3/uL (0-0); MYELOCYTES% (MANUAL) 1 % (0-0); SEG#(MANUAL) 9.45 x10^3/uL (1.8-6.8); SEGS% (MANUAL) 69 % (42-75)
[2020-09-08 05:45] LABS: ANISOCYTOSIS 1+; POLYCHROMASIA 1+
[2020-09-08 05:46] LABS: <PLATELET ESTIMATE> INCREASED; <PLT MORPHOLOGY> NORMAL PLT MORPH; TOXIC GRAN 1+
[2020-09-08 05:47] LABS: HYPOCHROMIA 1+; MICROCYTOSIS 1+
[2020-09-08] MEDS: INSULIN LISPRO 100 UNITS/ML, PEN SQ-INSULIN SCH ×4 (07:00→21:39)
[2020-09-08 07:14] VITALS: BP 162/99
[2020-09-08] MEDS ORDERED: MAGNESIUM SULFATE PMX 4GM/100M 100 ML IVPB ONE (08:30)
[2020-09-08] MEDS: MAGNESIUM OXIDE 400 MG TABLET PO SCH (09:26)
[2020-09-08] MEDS: POTASSIUM CHLORIDE 20 MEQ TAB.ER.PRT PO SCH ×3 (09:27→21:37)
[2020-09-08] MEDS ORDERED: HYDROmorphone 2 MG/ML, 1ML IVPush PRN (12:30)
[2020-09-08 12:33] VITALS: BP 151/82
[2020-09-08 16:59] VITALS: BP 152/97
[2020-09-08 18:43] VITALS: BP 151/91
[2020-09-08] MEDS ORDERED: MELATONIN 5 MG TABLET ONE (20:57)
[2020-09-08] MEDS: MELATONIN 5 MG TABLET PO PRN (21:37)
[2020-09-08] MEDS: ACETAMINOPHEN 325 MG TABLET PO PRN (21:39)
[2020-09-09] MEDS: HYDROmorphone 1 MG/ML, 1ML INJ IVPush PRN ×5 (01:25→20:58)
[2020-09-09 02:25] VITALS: BP 141/88
[2020-09-09] MEDS: HEPARIN 5,000 UNITS/ML, 1ML SQ SCH ×3 (03:28→19:26)
[2020-09-09] MEDS: VANCOMYCIN 50 MG/ML ORAL SUSP PO SCH ×4 (03:29→22:39)
[2020-09-09] MEDS: ACETAMINOPHEN 325 MG TABLET PO PRN ×2 (03:29→22:35)
[2020-09-09] MEDS: OXYcodone IR 5MG TABLET PO PRN (03:30)
[2020-09-09] MEDS: ERTAPENEM 1 GM in SODIUM CHLORIDE 0.9% 50 ML IV SCH (05:31)
[2020-09-09 06:04] LABS: MEAN CORPUSCULAR HEMOGLOBIN 28.2 pg (27.5-34.5); MEAN CORPUSCULAR HGB CONC 33.3 g/dL (33.2-36.2); MEAN PLATELET VOLUME 8.2 fL (7.4-10.4); PLATELET COUNT 699 x10^3/uL (130-400); RED BLOOD COUNT 3.58 x10^6/uL (4.38-5.82); RED CELL DISTRIBUTION WIDTH 17.9 % (9.4-14.8)
[2020-09-09 06:17] LABS: ALBUMIN 1.5 g/dL (3.4-5.0); ANION GAP 7 mmol/L (5-15); CHLORIDE 99 mmol/L (98-107); CREATININE 0.47 mg/dL (0.7-1.3)
[2020-09-09 06:34] LABS: ALANINE AMINOTRANSFERASE 25 U/L (12-78); ALKALINE PHOSPHATASE 102 U/L (45-117); BILIRUBIN,TOTAL 0.3 mg/dL (0.2-1.0); TOTAL PROTEIN 7.3 g/dL (6.4-8.2)
[2020-09-09 06:38] LABS: BANDS%(MANUAL) 2 % (0-7); EOS% (MANUAL) 2 % (1-7); LYMPH#(MANUAL) 3.15 x10^3/uL (1-3.4); LYMPHS% (MANUAL) 21 % (22-44); METAMYELOCYTES% (MANUAL) 2 % (0-1); MONOS% (MANUAL) 10 % (2-9); SEG#(MANUAL) 9.45 x10^3/uL (1.8-6.8); SEGS% (MANUAL) 63 % (42-75)
[2020-09-09 06:39] LABS: ANISOCYTOSIS 1+; MICROCYTOSIS 1+
[2020-09-09 06:42] LABS: <PLATELET ESTIMATE> INCREASED; <PLT MORPHOLOGY> NORMAL PLT MORPH; HYPOCHROMIA 1+; POLYCHROMASIA 1+; TOXIC GRAN 1+
[2020-09-09 07:20] VITALS: BP 136/86
[2020-09-09] MEDS ORDERED: POTASSIUM CHLORIDE 20 MEQ TAB.ER.PRT ONE (08:05)
[2020-09-09] MEDS: POTASSIUM CHLORIDE 20 MEQ TAB.ER.PRT PO SCH ×2 (09:15→16:49)
[2020-09-09] MEDS: OXYcodone/APAP 5/325MG TABLET PO PRN ×4 (09:15→23:47)
[2020-09-09] MEDS: MAGNESIUM OXIDE 400 MG TABLET PO SCH (09:16)
[2020-09-09] MEDS: INSULIN LISPRO 100 UNITS/ML, PEN SQ-INSULIN SCH ×4 (09:16→20:56)
[2020-09-09 13:25] VITALS: BP 153/95
[2020-09-09] MEDS: ONDANSETRON 2MG/ML, 2ML IVPush PRN (16:48)
[2020-09-09 18:30] VITALS: BP 160/100
[2020-09-09] MEDS: MELATONIN 5 MG TABLET PO PRN (20:57)
[2020-09-09 21:00] VITALS: BP 153/92
[2020-09-10] MEDS: ONDANSETRON 2MG/ML, 2ML IVPush PRN ×3 (01:09→22:59)
[2020-09-10] MEDS: HYDROmorphone 1 MG/ML, 1ML INJ IVPush PRN ×6 (01:09→22:59)
[2020-09-10] MEDS: OXYcodone/APAP 5/325MG TABLET PO PRN ×5 (03:53→21:57)
[2020-09-10 03:54] VITALS: BP 126/83
[2020-09-10] MEDS: HEPARIN 5,000 UNITS/ML, 1ML SQ SCH ×3 (03:58→20:00)
[2020-09-10] MEDS: ERTAPENEM 1 GM in SODIUM CHLORIDE 0.9% 50 ML IV SCH (05:18)
[2020-09-10] MEDS: VANCOMYCIN 50 MG/ML ORAL SUSP PO SCH ×4 (05:18→22:57)
[2020-09-10 05:44] LABS: MEAN CORPUSCULAR HEMOGLOBIN 28.2 pg (27.5-34.5); MEAN CORPUSCULAR HGB CONC 32.5 g/dL (33.2-36.2); MEAN PLATELET VOLUME 8.1 fL (7.4-10.4); PLATELET COUNT 742 x10^3/uL (130-400); RED CELL DISTRIBUTION WIDTH 17.3 % (9.4-14.8)
[2020-09-10 05:50] LABS: ANION GAP 6 mmol/L (5-15); CALCIUM 8.3 mg/dL (8.5-10.1); CHLORIDE 102 mmol/L (98-107)
[2020-09-10 05:52] LABS: CREATININE 0.41 mg/dL (0.7-1.3)
[2020-09-10 06:34] LABS: <PLATELET ESTIMATE> INCREASED; <PLT MORPHOLOGY> NORMAL PLT MORPH; ANISOCYTOSIS 1+; BANDS%(MANUAL) 7 % (0-7); EOS#(MANUAL) 0.19 x10^3/uL (0.0-0.4); EOS% (MANUAL) 1 % (1-7); HYPOCHROMIA 1+; LYMPH#(MANUAL) 2.05 x10^3/uL (1-3.4); LYMPHS% (MANUAL) 11 % (22-44); METAMYELOCYTES# (MANUAL) 0.37 x10^3/uL (0-0); METAMYELOCYTES% (MANUAL) 2 % (0-1); MICROCYTOSIS 1+; MONOS#(MANUAL) 1.67 x10^3/uL (0.3-2.7); MONOS% (MANUAL) 9 % (2-9); POLYCHROMASIA 1+; SEG#(MANUAL) 13.02 x10^3/uL (1.8-6.8); SEGS% (MANUAL) 70 % (42-75); TOXIC GRAN 1+
[2020-09-10 06:50] VITALS: BP 124/87
[2020-09-10] MEDS: INSULIN LISPRO 100 UNITS/ML, PEN SQ-INSULIN SCH ×4 (07:00→21:59)
[2020-09-10] MEDS: MAGNESIUM OXIDE 400 MG TABLET PO SCH (07:57)
[2020-09-10 12:27] VITALS: BP 151/95
[2020-09-10] MEDS: ONDANSETRON ODT 4 MG PO PRN (14:27)
[2020-09-10] MEDS: ACETAMINOPHEN 325 MG TABLET PO PRN ×2 (15:35→20:33)
[2020-09-10] MEDS ORDERED: CALCIUM CARBONATE 500 MG TAB.CHEW ONE (15:44)
[2020-09-10] MEDS: CALCIUM CARBONATE 500 MG TAB.CHEW PO SCH ×2 (15:47→21:56)
[2020-09-10] MEDS: KETOROLAC 30 MG/1 ML IVPush SCH ×2 (16:46→23:42)
[2020-09-10 19:16] VITALS: BP 135/90
[2020-09-10] MEDS: MELATONIN 5 MG TABLET PO PRN (22:58)
[2020-09-11] MEDS: ACETAMINOPHEN 325 MG TABLET PO PRN ×2 (00:50→15:24)
[2020-09-11 01:42] VITALS: BP 131/86
[2020-09-11] MEDS: HEPARIN 5,000 UNITS/ML, 1ML SQ SCH ×2 (04:00→11:07)
[2020-09-11] MEDS: HYDROmorphone 1 MG/ML, 1ML INJ IVPush PRN ×3 (05:01→13:07)
[2020-09-11] MEDS: ERTAPENEM 1 GM in SODIUM CHLORIDE 0.9% 50 ML IV SCH (05:01)
[2020-09-11] MEDS: VANCOMYCIN 50 MG/ML ORAL SUSP PO SCH ×2 (05:01→10:16)
[2020-09-11] MEDS: CALCIUM CARBONATE 500 MG TAB.CHEW PO SCH ×3 (05:02→16:00)
[2020-09-11 05:18] LABS: BASOPHILS % (AUTO) 1 % (0-1); EOSINOPHILS % (AUTO) 1 % (1-7); LYMPHOCYTES % (AUTO) 12 % (22-44); MEAN CORPUSCULAR HGB CONC 32.7 g/dL (33.2-36.2); MEAN PLATELET VOLUME 7.9 fL (7.4-10.4); MONOCYTES % (AUTO) 8 % (2-9); NEUTROPHILS % (AUTO) 78 % (42-75); PLATELET COUNT 776 x10^3/uL (130-400); RED BLOOD COUNT 3.79 x10^6/uL (4.38-5.82); RED CELL DISTRIBUTION WIDTH 17.7 % (9.4-14.8)
[2020-09-11 05:35] LABS: CHLORIDE 101 mmol/L (98-107)
[2020-09-11 05:46] LABS: ALANINE AMINOTRANSFERASE 30 U/L (12-78); ALBUMIN 1.6 g/dL (3.4-5.0); ALKALINE PHOSPHATASE 113 U/L (45-117); ANION GAP 6 mmol/L (5-15); BILIRUBIN,TOTAL 0.3 mg/dL (0.2-1.0); CALCIUM 8.3 mg/dL (8.5-10.1); CREATININE 0.53 mg/dL (0.7-1.3); TOTAL PROTEIN 7.7 g/dL (6.4-8.2)
[2020-09-11] MEDS: KETOROLAC 30 MG/1 ML IVPush SCH ×3 (05:51→16:05)
[2020-09-11] MEDS: OXYcodone/APAP 5/325MG TABLET PO PRN ×2 (06:50→12:12)
[2020-09-11 06:51] VITALS: BP 143/91
[2020-09-11] MEDS: ONDANSETRON ODT 4 MG PO PRN (07:06)
[2020-09-11] MEDS: INSULIN LISPRO 100 UNITS/ML, PEN SQ-INSULIN SCH ×3 (07:26→16:00)
[2020-09-11] MEDS: MAGNESIUM OXIDE 400 MG TABLET PO SCH (09:02)
[2020-09-11 13:19] VITALS: BP 137/89
[2020-09-11] MEDS ORDERED: CALC200T24 PO (15:14)
[2020-09-11] MEDS ORDERED: MAGN400T50 PO (15:14)
[2020-09-11] MEDS ORDERED: VANC1VIA36 PO (15:14)
== END 2020-09-11 16:27 | disposition home or self-care (01) | DRG 871 ==
LOC: ED 09-07 00:44 → EDIP 09-07 02:46 → 4NW 09-07 03:21 → 4WST 09-08 15:14 → 4NW 09-08 15:15 → 4WST 09-08 16:25
PROVIDERS: ADMIT Internal Medicine; ATTEND Internal Medicine
DX: A41.9 Sepsis, unspecified organism (principal); J96.01 Acute respiratory failure with hypoxia; A04.72 Enterocolitis due to Clostridium difficile, not specified as recurrent; E87.1 Hypo-osmolality and hyponatremia; J98.11 Atelectasis; J90 Pleural effusion, not elsewhere classified; K86.3 Pseudocyst of pancreas; F10.20 Alcohol dependence, uncomplicated; Y90.9 Presence of alcohol in blood, level not specified; E87.6 Hypokalemia; E83.42 Hypomagnesemia; E11.9 Type 2 diabetes mellitus without complications; F12.10 Cannabis abuse, uncomplicated; Z90.49 Acquired absence of other specified parts of digestive tract; Z79.899 Other long term (current) drug therapy
CPT/HCPCS: 32555; 36415; 82945; 84145; 89051; 89055; 99291; J3370; 71045; 74177; 80048; 80053; 80061; 80307; 80320; 81003; 82040; 82962; 83036; 83605; 83615; 83690; 83735; 84100; 84155; 84157; 84443; 84484; 85025; 87040; 87070; 87205; 87324; 88112; 88305; 93005; G0378; J1170; J1335; J1644; J1885; J2405; J2543; J2550; Q0162; Q9967; G0480; J1815; J3475; J7030; J7040

== ENCOUNTER → 2020-09-21 | Outpatient (CLI) | payer BC ==
[~2020-09-21] MED LIST changes: +CALC200T24 PO; +MAGN400T50 PO; +METH-639 PO
== END | disposition home or self-care (01) ==
LOC: STAR 11:29
PROVIDERS: ATTEND Internal Medicine Geriatric Medicine
DX: Z20.822 Contact with and (suspected) exposure to COVID-19 (principal); K86.3 Pseudocyst of pancreas; K85.92 Acute pancreatitis with infected necrosis, unspecified
CPT/HCPCS: U0003; U0005

== ENCOUNTER 2020-09-25 11:47 | Day surgery (SDC) | payer BC ==
[~2020-09-25] VITALS: Ht 188 cm; Wt 83.2 kg
[2020-09-25 12:13] VITALS: BP 110/81
[2020-09-25] MEDS ORDERED: DEXAMETHASONE 4 MG/ML, 1ML ONE (12:26)
[2020-09-25] MEDS ORDERED: CHLORHEXIDINE 15 ML UDC PO ONE (12:30)
[2020-09-25] MEDS ORDERED: LACTATED RINGERS 1,000 ML IV SCH (12:30)
[2020-09-25] MEDS ORDERED: LIDOCAINE-MPF 1%, 2ML INFIL ONE (12:30)
[2020-09-25] MEDS ORDERED: ONDANSETRON 2MG/ML, 2ML ONE (13:19)
[2020-09-25] MEDS ORDERED: NEOSTIGMINE 1 MG/ML, 10ML ONE (13:19)
[2020-09-25] MEDS ORDERED: SUCCINYLCHOLINE 20 MG/ML, 10ML ONE (13:19)
[2020-09-25] MEDS ORDERED: CEFAZOLIN 1,000 MG ONE (13:19)
[2020-09-25] MEDS ORDERED: GLYCOPYRROLATE 0.2MG/1ML, 5ML ONE (13:19)
[2020-09-25] MEDS ORDERED: ROCURONIUM 10MG/ML,5ML ONE (13:19)
[2020-09-25] MEDS ORDERED: FENTANYL PF 100 MCG/2ML ONE (13:19)
[2020-09-25] MEDS ORDERED: PROPOFOL 10 MG/ML, 20ML ONE (13:19)
[2020-09-25] MEDS ORDERED: OXYcodone 5 MG/5 ML ORAL.SOL UDC PO PRN (14:00)
[2020-09-25] MEDS ORDERED: HYDROcodone/APAP 7.5-325MG/15ML UDC PO PRN (14:00)
[2020-09-25] MEDS ORDERED: MEPERIDINE/PF 25MG/0.5ML IVPush PRN (14:00)
[2020-09-25] MEDS ORDERED: FENTANYL PF 100 MCG/2ML IV PRN (14:00)
[2020-09-25] MEDS ORDERED: HYDROmorphone 1 MG/ML, 1ML INJ IVPush PRN (14:00)
[2020-09-25] MEDS ORDERED: PROMETHAZINE 25 MG/ML, 1ML IVPush PRN (14:00)
[2020-09-25] MEDS ORDERED: ONDANSETRON 2MG/ML, 2ML IVPush PRN (14:00)
== END 2020-09-25 15:00 | disposition home or self-care (01) ==
LOC: OUT 11:47
PROVIDERS: ATTEND Internal Medicine Geriatric Medicine
DX: K85.21 Alcohol induced acute pancreatitis with uninfected necrosis (principal); K86.3 Pseudocyst of pancreas; E11.9 Type 2 diabetes mellitus without complications; F12.90 Cannabis use, unspecified, uncomplicated; F10.20 Alcohol dependence, uncomplicated; Z72.89 Other problems related to lifestyle; Z79.899 Other long term (current) drug therapy; Z79.4 Long term (current) use of insulin; Z98.890 Other specified postprocedural states
CPT/HCPCS: 43247; 48999; 74018; 82962; J0330; J0690; J1100; J2250; J2405; J2704; J2710; J3010; J7120; 76000

== ENCOUNTER 2020-10-04 16:38 | Emergency (ER) | payer BC ==
[~2020-10-04] VITALS: Ht 188 cm; Wt 81.5 kg
[~2020-10-04 16:38] MED LIST changes: -OMNIPAQUE 350 MG/ML, 100ML BOTTLE ONE
--- NOTE | 2020-10-04 18:08 | NUR ---
PT AMBULATORY TO ROOM 24 W/ C/O L MID QUADRANT ABD PAIN. PT STATES HE WAS DX W/ PANCREATITIS 07/12/20 AND WAS ADMITTED TO THE HOSPITAL FOR 2 WEEKS. PT WAS A FUNCTIONING ALCOHOLIC FOR MANY YEARS AND WAS THEN DX W/ PANCREATITIS AND IS NOW SOBER. PT PCP ORDERED PT'S CT ABD AFTER PT WAS HAVING C/O ABD PAIN AND WAS FOUND TO HAVE ISSUES W/ MESENTERIC ARTERY AND WAS TOLD TO COME TO ED. PT ALSO HAD BLOOD WORK DONE W/ ELEVATED PLATELETS AND ALSO W/ ANEMIA. WAS TOLD TO COME IN TO ED. PT RESTING ON GURNEY. NADN. MONITORS APPLIED. VSS. WARM BLANKET PROVIDED. CALL LIGHT IN REACH.
--- NOTE | 2020-10-04 18:10 | NUR ---
ESCROW AGENT: PT TO ROOM FROM LOBBY
--- NOTE | 2020-10-04 18:25 | NUR ---
PER ERP DR. KELLER NO NEED FOR ANY LAB WORK OTHER THAN A LACTIC ACID FOR PT.
[2020-10-04] MEDS ORDERED: KETOROLAC 30 MG/1 ML IVPush ONE (19:00)
--- NOTE | 2020-10-04 19:03 | NUR ---
PT RESTING ON GURNEY. NADN. CABELLO.
[2020-10-04] MEDS ORDERED: KETOROLAC 30 MG/1 ML ONE (19:35)
--- NOTE | 2020-10-04 20:16 | NUR ---
PT RESTING ON GURNEY. ANTONIO VSS. STATES NO IMPROVEMENT OF PAIN AFTER TORADOL ADMIN.
--- NOTE | 2020-10-04 21:06 | NUR ---
REPORT GIVEN TO SAMANTHA Rivera RN.
[2020-10-04 22:10] VITALS: BP 138/90
== END 2020-10-04 22:14 | disposition home or self-care (01) ==
LOC: ED 21:33
DX: I77.1 Stricture of artery (principal); R00.0 Tachycardia, unspecified
CPT/HCPCS: 36415; 83605; 93005; 96374; 99285; J1885

== ENCOUNTER → 2020-10-04 | Outpatient (CLI) | payer BC ==
[~2020-10-04] MED LIST changes: +OMNIPAQUE 350 MG/ML, 100ML BOTTLE ONE
== END | disposition home or self-care (01) ==
LOC: RAD 12:42
PROVIDERS: ATTEND Physician Assistant Medical
DX: K86.3 Pseudocyst of pancreas (principal); R00.0 Tachycardia, unspecified; K86.0 Alcohol-induced chronic pancreatitis; A04.72 Enterocolitis due to Clostridium difficile, not specified as recurrent; N20.0 Calculus of kidney; M79.605 Pain in left leg; D47.3 Essential (hemorrhagic) thrombocythemia; K27.9 Peptic ulcer, site unspecified, unspecified as acute or chronic, without hemorrhage or perforation; R10.84 Generalized abdominal pain; K85.90 Acute pancreatitis without necrosis or infection, unspecified
CPT/HCPCS: 74178; Q9967